=== PATIENT | male | born 1955 ===

== ENCOUNTER 2017-05-12 20:38 | Inpatient (IN) | payer MEDICAID, OTHER ==
[~2017-05-12] VITALS: Ht 195.6 cm; Wt 99.4 kg
[2017-05-12 21:32] LABS: BASOPHILS # (AUTO) 0.01 x10^3/uL (0-0.1); BASOPHILS % (AUTO) 0 % (0-1); EOSINOPHILS # (AUTO) 0.23 x10^3/uL (0-0.4); EOSINOPHILS % (AUTO) 2 % (1-7); LYMPHOCYTES # (AUTO) 1.66 x10^3/uL (1-3.4); LYMPHOCYTES % (AUTO) 16 % (22-44); MD NO; MEAN CORPUSCULAR HEMOGLOBIN 29.8 pg (27.5-34.5); MEAN CORPUSCULAR HGB CONC 34.1 g/dL (33.2-36.2); MEAN CORPUSCULAR VOLUME 87.3 fL (81-97); MONOCYTES # (AUTO) 1.24 x10^3/uL (0.2-0.8); MONOCYTES % (AUTO) 12 % (2-9); NEUTROPHILS # (AUTO) 7.26 x10^3/uL (1.8-6.8); NEUTROPHILS % (AUTO) 70 % (42-75); PLATELET COUNT 271 x10^3/uL (130-400); RED BLOOD COUNT 4.08 x10^6/uL (4.38-5.82); RED CELL DISTRIBUTION WIDTH 14.6 % (9.4-14.8)
[2017-05-12 21:42] LABS: ALBUMIN 3.6 g/dL (3.4-5.0); ANION GAP 9 mmol/L (5-15); CALCIUM 8.4 mg/dL (8.5-10.1); CHLORIDE 109 mmol/L (98-107); CREATININE 1.21 mg/dL (0.7-1.3)
[2017-05-12] MEDS ORDERED: INSU100V13 INJ (22:14)
[2017-05-12] MEDS ORDERED: LISI40TA PO (22:15)
[2017-05-12] MEDS ORDERED: TERA2CAP3 PO (22:15)
[2017-05-12] MEDS ORDERED: CLINDAMYCIN PMX 600MG/50ML 50 ML ONE (22:27)
[2017-05-12] MEDS ORDERED: CLINDAMYCIN PMX 600MG/50ML 50 ML IV ONE (22:30)
[2017-05-12] MEDS ORDERED: SODIUM CHLORIDE 0.9% 1,000 ML IV ONE (22:42)
[2017-05-12] MEDS ORDERED: ONDANSETRON 2MG/ML, 2ML IVPush PRN (23:00)
[2017-05-12] MEDS ORDERED: ONDANSETRON ODT 4 MG PO PRN (23:00)
[2017-05-12] MEDS ORDERED: MORPHINE SULFATE 4 MG/ML, 1ML IVPush PRN (23:00)
[2017-05-12] MEDS ORDERED: ENALAPRILAT 1.25 MG/ML, 2ML IVPush PRN (23:00)
[2017-05-12] MEDS ORDERED: TEMAZEPAM 15 MG CAPSULE PO PRN (23:00)
[2017-05-12] MEDS ORDERED: DOCUSATE 100 MG CAPSULE PO PRN (23:00)
[2017-05-13 00:38] VITALS: BP 110/60
[2017-05-13] MEDS: SODIUM CHLORIDE 0.45% 1,000 ML IV SCH ×3 (00:56→22:00)
[2017-05-13] MEDS: ENOXAPARIN 40 MG/0.4 ML SQ SCH (01:02)
[2017-05-13] MEDS: CLINDAMYCIN PMX 600MG/50ML 50 ML IV SCH ×2 (03:13→16:44)
[2017-05-13 05:16] LABS: BASOPHILS # (AUTO) 0.04 x10^3/uL (0-0.1); BASOPHILS % (AUTO) 1 % (0-1); EOSINOPHILS # (AUTO) 0.25 x10^3/uL (0-0.4); EOSINOPHILS % (AUTO) 3 % (1-7); LYMPHOCYTES # (AUTO) 1.55 x10^3/uL (1-3.4); LYMPHOCYTES % (AUTO) 18 % (22-44); MD NO; MEAN CORPUSCULAR HGB CONC 33.7 g/dL (33.2-36.2); MEAN CORPUSCULAR VOLUME 88.9 fL (81-97); MEAN PLATELET VOLUME 7.9 fL (7.4-10.4); MONOCYTES # (AUTO) 1.19 x10^3/uL (0.2-0.8); MONOCYTES % (AUTO) 14 % (2-9); NEUTROPHILS # (AUTO) 5.51 x10^3/uL (1.8-6.8); NEUTROPHILS % (AUTO) 65 % (42-75); PLATELET COUNT 242 x10^3/uL (130-400); RED BLOOD COUNT 3.64 x10^6/uL (4.38-5.82); RED CELL DISTRIBUTION WIDTH 14.1 % (9.4-14.8)
[2017-05-13 05:29] LABS: CHLORIDE 109 mmol/L (98-107)
[2017-05-13 05:34] LABS: ANION GAP 9 mmol/L (5-15); CALCIUM 8.1 mg/dL (8.5-10.1); CREATININE 1.03 mg/dL (0.7-1.3)
[2017-05-13 07:20] VITALS: BP 109/62
[2017-05-13 08:43] LABS: HEMOGLOBIN A1C 9.1 % (4.2-6.3)
[2017-05-13] MEDS: INSULIN LISPRO 100 UNITS/ML, PEN SQ-INSULIN SCH ×3 (11:00→22:09)
[2017-05-13] MEDS: TERAZOSIN 2MG CAPSULE PO SCH (11:29)
[2017-05-13] MEDS: LISINOPRIL 20 MG TABLET PO SCH (11:31)
[2017-05-13] MEDS: INSULIN GLARGINE 100 UNITS/ML, PEN SQ-INSULIN SCH (12:54)
[2017-05-13 13:45] VITALS: BP 103/56
[2017-05-13] MEDS: ACETAMINOPHEN 325 MG TABLET PO PRN (16:50)
[2017-05-13 18:59] VITALS: BP 115/63
[2017-05-14] MEDS: CLINDAMYCIN PMX 600MG/50ML 50 ML IV SCH ×2 (00:17→13:13)
[2017-05-14] MEDS: ENOXAPARIN 40 MG/0.4 ML SQ SCH ×2 (00:18→23:07)
[2017-05-14 02:42] VITALS: BP 153/70
[2017-05-14 05:54] LABS: CHLORIDE 113 mmol/L (98-107)
[2017-05-14 06:00] LABS: ANION GAP 8 mmol/L (5-15); CALCIUM 8.2 mg/dL (8.5-10.1); CREATININE 0.85 mg/dL (0.7-1.3)
[2017-05-14 06:17] LABS: BASOPHILS # (AUTO) 0.03 x10^3/uL (0-0.1); BASOPHILS % (AUTO) 0 % (0-1); EOSINOPHILS # (AUTO) 0.21 x10^3/uL (0-0.4); EOSINOPHILS % (AUTO) 3 % (1-7); LYMPHOCYTES # (AUTO) 1.42 x10^3/uL (1-3.4); LYMPHOCYTES % (AUTO) 22 % (22-44); MD NO; MEAN CORPUSCULAR HEMOGLOBIN 29.7 pg (27.5-34.5); MEAN CORPUSCULAR HGB CONC 33.6 g/dL (33.2-36.2); MEAN CORPUSCULAR VOLUME 88.6 fL (81-97); MEAN PLATELET VOLUME 8.5 fL (7.4-10.4); MONOCYTES # (AUTO) 0.77 x10^3/uL (0.2-0.8); MONOCYTES % (AUTO) 12 % (2-9); NEUTROPHILS # (AUTO) 4.14 x10^3/uL (1.8-6.8); NEUTROPHILS % (AUTO) 63 % (42-75); PLATELET COUNT 257 x10^3/uL (130-400); RED BLOOD COUNT 3.87 x10^6/uL (4.38-5.82); RED CELL DISTRIBUTION WIDTH 14.4 % (9.4-14.8)
[2017-05-14] MEDS: INSULIN LISPRO 100 UNITS/ML, PEN SQ-INSULIN SCH ×4 (07:00→21:00)
[2017-05-14 07:05] VITALS: BP 152/83
[2017-05-14] MEDS: TERAZOSIN 2MG CAPSULE PO SCH (08:16)
[2017-05-14] MEDS: LISINOPRIL 20 MG TABLET PO SCH (08:16)
[2017-05-14] MEDS: INSULIN GLARGINE 100 UNITS/ML, PEN SQ-INSULIN SCH (08:19)
[2017-05-14] MEDS ORDERED: GADOBUTROL 10 MMOL/10 ML PFS ONE (09:11)
[2017-05-14 13:04] VITALS: BP 131/62
[2017-05-14] MEDS: SODIUM CHLORIDE 0.45% 1,000 ML IV SCH (14:18)
[2017-05-14 19:31] VITALS: BP 171/84
[2017-05-14 19:40] LABS: HCT (SEDRATE) 34.6 % (39.2-51.8)
[2017-05-14 19:54] LABS: ALBUMIN 2.8 g/dL (3.4-5.0); ANION GAP 8 mmol/L (5-15); CALCIUM 8.3 mg/dL (8.5-10.1); CHLORIDE 115 mmol/L (98-107)
[2017-05-14 20:04] LABS: ALANINE AMINOTRANSFERASE 44 U/L (12-78); ALKALINE PHOSPHATASE 66 U/L (45-117); BILIRUBIN,TOTAL 0.3 mg/dL (0.2-1.0); CREATININE 1.04 mg/dL (0.7-1.3); TOTAL PROTEIN 6.7 g/dL (6.4-8.2)
[2017-05-14] MEDS: CEFTAROLINE 600 MG in SODIUM CHLORIDE 0.9% 100 ML IV SCH (21:01)
[2017-05-15] MEDS: SODIUM CHLORIDE 0.45% 1,000 ML IV SCH ×3 (01:33→20:33)
[2017-05-15 01:34] VITALS: BP 161/68
[2017-05-15 05:12] LABS: BASOPHILS # (AUTO) 0.04 x10^3/uL (0-0.1); BASOPHILS % (AUTO) 1 % (0-1); EOSINOPHILS % (AUTO) 3 % (1-7); LYMPHOCYTES # (AUTO) 1.65 x10^3/uL (1-3.4); LYMPHOCYTES % (AUTO) 22 % (22-44); MD NO; MEAN CORPUSCULAR HEMOGLOBIN 29.8 pg (27.5-34.5); MEAN CORPUSCULAR HGB CONC 33.4 g/dL (33.2-36.2); MEAN PLATELET VOLUME 8.3 fL (7.4-10.4); MONOCYTES # (AUTO) 0.68 x10^3/uL (0.2-0.8); MONOCYTES % (AUTO) 9 % (2-9); NEUTROPHILS % (AUTO) 66 % (42-75); PLATELET COUNT 266 x10^3/uL (130-400); RED BLOOD COUNT 3.77 x10^6/uL (4.38-5.82); RED CELL DISTRIBUTION WIDTH 14.2 % (9.4-14.8)
[2017-05-15 05:26] LABS: ANION GAP 8 mmol/L (5-15); CALCIUM 8.3 mg/dL (8.5-10.1); CHLORIDE 113 mmol/L (98-107)
[2017-05-15 05:28] LABS: CREATININE 0.84 mg/dL (0.7-1.3)
[2017-05-15] MEDS: INSULIN LISPRO 100 UNITS/ML, PEN SQ-INSULIN SCH ×4 (07:00→20:40)
[2017-05-15 07:14] VITALS: BP 168/90
[2017-05-15] MEDS: CEFTAROLINE 600 MG in SODIUM CHLORIDE 0.9% 100 ML IV SCH ×2 (07:59→20:32)
[2017-05-15] MEDS: TERAZOSIN 2MG CAPSULE PO SCH ×2 (09:55→20:32)
[2017-05-15] MEDS: LISINOPRIL 20 MG TABLET PO SCH (09:56)
[2017-05-15] MEDS: INSULIN GLARGINE 100 UNITS/ML, PEN SQ-INSULIN SCH (09:56)
[2017-05-15 13:12] VITALS: BP 170/79
[2017-05-15 20:34] VITALS: BP 175/85
[2017-05-15] MEDS: ENOXAPARIN 40 MG/0.4 ML SQ SCH (22:59)
[2017-05-16] MEDS: SODIUM CHLORIDE 0.45% 1,000 ML IV SCH ×2 (03:28→11:35)
[2017-05-16] MEDS: CEFTAROLINE 600 MG in SODIUM CHLORIDE 0.9% 100 ML IV SCH ×2 (03:30→15:49)
[2017-05-16 03:31] VITALS: BP 159/70
[2017-05-16] MEDS: INSULIN LISPRO 100 UNITS/ML, PEN SQ-INSULIN SCH ×4 (07:00→21:48)
[2017-05-16 08:06] VITALS: BP 151/72
[2017-05-16] MEDS: TERAZOSIN 2MG CAPSULE PO SCH ×2 (09:00→21:38)
[2017-05-16] MEDS: LISINOPRIL 20 MG TABLET PO SCH (09:00)
[2017-05-16] MEDS: INSULIN GLARGINE 100 UNITS/ML, PEN SQ-INSULIN SCH (09:00)
[2017-05-16] MEDS ORDERED: BUPIVACAINE/PF 0.5% ONE (11:08)
[2017-05-16] MEDS ORDERED: FENTANYL PF 100 MCG/2ML ONE ×2 (11:46→12:09)
[2017-05-16] MEDS ORDERED: MIDAZOLAM 1 MG/ML, 2ML ONE (11:46)
[2017-05-16] MEDS ORDERED: ROCURONIUM 10 MG/ML,10ML ONE (11:47)
[2017-05-16] MEDS ORDERED: SUCCINYLCHOLINE 20 MG/ML, 10ML ONE (11:47)
[2017-05-16] MEDS ORDERED: PROPOFOL 10 MG/ML, 20ML ONE (11:49)
[2017-05-16] MEDS ORDERED: NEOSPORIN OINT, 15GM ONE (12:24)
[2017-05-16] MEDS ORDERED: OXYcodone 5 MG/5 ML ORAL.SOL UDC ONE (12:56)
[2017-05-16] MEDS ORDERED: FENTANYL PF 100 MCG/2ML IV PRN (13:00)
[2017-05-16] MEDS ORDERED: OXYcodone 5 MG/5 ML ORAL.SOL UDC PO PRN (13:00)
[2017-05-16] MEDS ORDERED: ACETAMINOPHEN 325 MG TABLET PO PRN (13:00)
[2017-05-16] MEDS ORDERED: HYDROmorphone 1 MG/ML, 1ML IV PRN (13:00)
[2017-05-16] MEDS ORDERED: ONDANSETRON 2MG/ML, 2ML IVPush PRN (13:00)
[2017-05-16] MEDS ORDERED: HYDROcodone/APAP 7.5-325MG/15ML UDC PO PRN (13:00)
[2017-05-16 13:39] VITALS: BP 154/83
[2017-05-16] MEDS ORDERED: ONDANSETRON 2MG/ML, 2ML ONE (15:42)
[2017-05-16] MEDS ORDERED: DEXAMETHASONE 4 MG/ML, 1ML ONE (15:42)
[2017-05-16 19:00] VITALS: BP 162/71
[2017-05-16] MEDS: ENOXAPARIN 40 MG/0.4 ML SQ SCH (23:00)
[2017-05-17 03:00] VITALS: BP 145/72
[2017-05-17] MEDS: CEFTAROLINE 600 MG in SODIUM CHLORIDE 0.9% 100 ML IV SCH ×2 (03:14→17:11)
[2017-05-17 05:32] LABS: ANION GAP 7 mmol/L (5-15); CALCIUM 8.3 mg/dL (8.5-10.1); CHLORIDE 111 mmol/L (98-107); CREATININE 0.92 mg/dL (0.7-1.3)
[2017-05-17 05:32] LABS: BASOPHILS # (AUTO) 0.03 x10^3/uL (0-0.1); BASOPHILS % (AUTO) 0 % (0-1); EOSINOPHILS # (AUTO) 0.03 x10^3/uL (0-0.4); EOSINOPHILS % (AUTO) 0 % (1-7); LYMPHOCYTES # (AUTO) 1.42 x10^3/uL (1-3.4); LYMPHOCYTES % (AUTO) 14 % (22-44); MD NO; MEAN CORPUSCULAR HEMOGLOBIN 29.7 pg (27.5-34.5); MEAN CORPUSCULAR HGB CONC 33.6 g/dL (33.2-36.2); MEAN CORPUSCULAR VOLUME 88.5 fL (81-97); MEAN PLATELET VOLUME 8.4 fL (7.4-10.4); MONOCYTES # (AUTO) 0.59 x10^3/uL (0.2-0.8); MONOCYTES % (AUTO) 6 % (2-9); NEUTROPHILS # (AUTO) 8.12 x10^3/uL (1.8-6.8); NEUTROPHILS % (AUTO) 80 % (42-75); PLATELET COUNT 292 x10^3/uL (130-400); RED BLOOD COUNT 3.81 x10^6/uL (4.38-5.82); RED CELL DISTRIBUTION WIDTH 13.8 % (9.4-14.8)
[2017-05-17 07:28] VITALS: BP 184/70
[2017-05-17] MEDS: INSULIN LISPRO 100 UNITS/ML, PEN SQ-INSULIN SCH ×4 (07:42→20:51)
[2017-05-17] MEDS: TERAZOSIN 2MG CAPSULE PO SCH ×2 (07:43→19:20)
[2017-05-17] MEDS: LISINOPRIL 20 MG TABLET PO SCH (07:43)
[2017-05-17] MEDS: INSULIN GLARGINE 100 UNITS/ML, PEN SQ-INSULIN SCH (07:52)
[2017-05-17 09:45] VITALS: BP 149/86
[2017-05-17 13:17] VITALS: BP 167/74
[2017-05-17 18:59] VITALS: BP 163/84
[2017-05-17] MEDS: ENOXAPARIN 40 MG/0.4 ML SQ SCH (22:31)
[2017-05-18 01:35] VITALS: BP 149/86
[2017-05-18] MEDS: CEFTAROLINE 600 MG in SODIUM CHLORIDE 0.9% 100 ML IV SCH ×2 (03:08→16:45)
[2017-05-18 05:18] LABS: ANION GAP 7 mmol/L (5-15); CHLORIDE 111 mmol/L (98-107)
[2017-05-18 05:42] LABS: BASOPHILS # (AUTO) 0.04 x10^3/uL (0-0.1); BASOPHILS % (AUTO) 1 % (0-1); EOSINOPHILS # (AUTO) 0.17 x10^3/uL (0-0.4); EOSINOPHILS % (AUTO) 3 % (1-7); LYMPHOCYTES # (AUTO) 1.92 x10^3/uL (1-3.4); LYMPHOCYTES % (AUTO) 28 % (22-44); MD NO; MEAN CORPUSCULAR HEMOGLOBIN 29.8 pg (27.5-34.5); MEAN CORPUSCULAR HGB CONC 33.5 g/dL (33.2-36.2); MEAN PLATELET VOLUME 8.4 fL (7.4-10.4); MONOCYTES # (AUTO) 0.47 x10^3/uL (0.2-0.8); MONOCYTES % (AUTO) 7 % (2-9); NEUTROPHILS % (AUTO) 62 % (42-75); PLATELET COUNT 294 x10^3/uL (130-400); RED CELL DISTRIBUTION WIDTH 13.9 % (9.4-14.8)
[2017-05-18 06:47] VITALS: BP 159/77
[2017-05-18] MEDS: INSULIN LISPRO 100 UNITS/ML, PEN SQ-INSULIN SCH ×4 (07:00→22:00)
[2017-05-18] MEDS: INSULIN GLARGINE 100 UNITS/ML, PEN SQ-INSULIN SCH (09:14)
[2017-05-18] MEDS: LISINOPRIL 20 MG TABLET PO SCH (09:14)
[2017-05-18] MEDS: TERAZOSIN 2MG CAPSULE PO SCH ×2 (09:14→22:00)
[2017-05-18 12:43] VITALS: BP 183/87
[2017-05-18 13:23] VITALS: BP 167/79
[2017-05-18 19:36] VITALS: BP 168/74
[2017-05-18] MEDS: ENOXAPARIN 40 MG/0.4 ML SQ SCH (22:01)
[2017-05-19] MEDS: CEFTAROLINE 600 MG in SODIUM CHLORIDE 0.9% 100 ML IV SCH (04:25)
[2017-05-19 04:34] VITALS: BP 164/83
[2017-05-19] MEDS: INSULIN LISPRO 100 UNITS/ML, PEN SQ-INSULIN SCH ×4 (07:00→20:52)
[2017-05-19 07:20] VITALS: BP 167/76
[2017-05-19] MEDS: LISINOPRIL 20 MG TABLET PO SCH (08:18)
[2017-05-19] MEDS: TERAZOSIN 2MG CAPSULE PO SCH ×2 (08:18→20:14)
[2017-05-19] MEDS: INSULIN GLARGINE 100 UNITS/ML, PEN SQ-INSULIN SCH (08:19)
[2017-05-19 13:26] VITALS: BP 161/73
[2017-05-19] MEDS: PIPERACILLIN/TAZO/PMX 3.375GM 50 ML IV SCH ×2 (14:12→20:14)
[2017-05-19 19:14] VITALS: BP 176/76
[2017-05-19 20:15] VITALS: BP 176/79
[2017-05-19] MEDS: hydrALAzine 20 MG/ML, 1ML IV PRN (20:15)
[2017-05-19 21:30] VITALS: BP 166/72
[2017-05-19] MEDS: ENOXAPARIN 40 MG/0.4 ML SQ SCH (23:00)
[2017-05-20 01:13] VITALS: BP 158/74
[2017-05-20] MEDS: PIPERACILLIN/TAZO/PMX 3.375GM 50 ML IV SCH ×4 (02:12→21:11)
[2017-05-20 06:46] VITALS: BP 162/75
[2017-05-20] MEDS: INSULIN LISPRO 100 UNITS/ML, PEN SQ-INSULIN SCH ×4 (07:00→21:00)
[2017-05-20] MEDS: LISINOPRIL 20 MG TABLET PO SCH (09:35)
[2017-05-20] MEDS: TERAZOSIN 2MG CAPSULE PO SCH ×2 (09:35→21:11)
[2017-05-20] MEDS: INSULIN GLARGINE 100 UNITS/ML, PEN SQ-INSULIN SCH (09:40)
[2017-05-20] MEDS: ACETAMINOPHEN 325 MG TABLET PO PRN (09:48)
[2017-05-20 13:06] VITALS: BP 156/76
[2017-05-20 19:47] VITALS: BP 159/67
[2017-05-20] MEDS: ENOXAPARIN 40 MG/0.4 ML SQ SCH (23:50)
[2017-05-21 02:55] VITALS: BP 177/86
[2017-05-21] MEDS: PIPERACILLIN/TAZO/PMX 3.375GM 50 ML IV SCH ×4 (02:59→19:42)
[2017-05-21] MEDS: hydrALAzine 20 MG/ML, 1ML IV PRN (03:00)
[2017-05-21 04:10] VITALS: BP 165/81
[2017-05-21 04:56] LABS: BASOPHILS # (AUTO) 0.03 x10^3/uL (0-0.1); BASOPHILS % (AUTO) 0 % (0-1); EOSINOPHILS # (AUTO) 0.21 x10^3/uL (0-0.4); EOSINOPHILS % (AUTO) 3 % (1-7); LYMPHOCYTES # (AUTO) 2.13 x10^3/uL (1-3.4); LYMPHOCYTES % (AUTO) 29 % (22-44); MD NO; MEAN CORPUSCULAR HEMOGLOBIN 30.1 pg (27.5-34.5); MEAN CORPUSCULAR HGB CONC 34.1 g/dL (33.2-36.2); MEAN CORPUSCULAR VOLUME 88.3 fL (81-97); MEAN PLATELET VOLUME 7.8 fL (7.4-10.4); MONOCYTES # (AUTO) 0.53 x10^3/uL (0.2-0.8); MONOCYTES % (AUTO) 7 % (2-9); NEUTROPHILS # (AUTO) 4.47 x10^3/uL (1.8-6.8); NEUTROPHILS % (AUTO) 61 % (42-75); PLATELET COUNT 377 x10^3/uL (130-400); RED BLOOD COUNT 4.45 x10^6/uL (4.38-5.82); RED CELL DISTRIBUTION WIDTH 14.5 % (9.4-14.8)
[2017-05-21 04:59] LABS: ALBUMIN 3.1 g/dL (3.4-5.0); ANION GAP 7 mmol/L (5-15); CALCIUM 8.7 mg/dL (8.5-10.1); CHLORIDE 111 mmol/L (98-107)
[2017-05-21 05:02] LABS: ALANINE AMINOTRANSFERASE 39 U/L (12-78); ALKALINE PHOSPHATASE 74 U/L (45-117); BILIRUBIN,TOTAL 0.5 mg/dL (0.2-1.0); C-REACTIVE PROTEIN, QUANT 0.62 mg/dL (0.02-0.49); CREATININE 0.95 mg/dL (0.7-1.3)
[2017-05-21 05:21] LABS: HCT (SEDRATE) 33.8 % (39.2-51.8)
[2017-05-21 06:50] VITALS: BP 163/75
[2017-05-21] MEDS: INSULIN LISPRO 100 UNITS/ML, PEN SQ-INSULIN SCH ×4 (07:00→19:42)
[2017-05-21] MEDS: INSULIN GLARGINE 100 UNITS/ML, PEN SQ-INSULIN SCH (08:02)
[2017-05-21] MEDS: TERAZOSIN 2MG CAPSULE PO SCH ×2 (08:02→19:41)
[2017-05-21] MEDS: LISINOPRIL 20 MG TABLET PO SCH (08:02)
[2017-05-21] MEDS: ACETAMINOPHEN 325 MG TABLET PO PRN ×2 (08:02→19:41)
[2017-05-21 14:00] VITALS: BP 156/73
[2017-05-21 19:32] VITALS: BP 172/70
[2017-05-22 04:33] VITALS: BP 141/63
[2017-05-22] MEDS: PIPERACILLIN/TAZO/PMX 3.375GM 50 ML IV SCH ×4 (04:33→21:04)
[2017-05-22] MEDS: INSULIN LISPRO 100 UNITS/ML, PEN SQ-INSULIN SCH ×4 (07:00→21:18)
[2017-05-22 07:55] VITALS: BP 165/71
[2017-05-22] MEDS: LISINOPRIL 20 MG TABLET PO SCH (09:08)
[2017-05-22] MEDS: TERAZOSIN 2MG CAPSULE PO SCH ×2 (09:08→21:04)
[2017-05-22] MEDS: INSULIN GLARGINE 100 UNITS/ML, PEN SQ-INSULIN SCH (09:09)
[2017-05-22] MEDS: ENOXAPARIN 40 MG/0.4 ML SQ SCH (09:09)
[2017-05-22 13:08] VITALS: BP 157/73
[2017-05-22 19:52] VITALS: BP 164/75
[2017-05-23] MEDS: PIPERACILLIN/TAZO/PMX 3.375GM 50 ML IV SCH ×4 (03:57→20:17)
[2017-05-23] MEDS: INSULIN LISPRO 100 UNITS/ML, PEN SQ-INSULIN SCH ×4 (07:00→20:25)
[2017-05-23 07:27] VITALS: BP 162/72
[2017-05-23] MEDS: ENOXAPARIN 40 MG/0.4 ML SQ SCH (08:43)
[2017-05-23] MEDS: LISINOPRIL 20 MG TABLET PO SCH (08:43)
[2017-05-23] MEDS: TERAZOSIN 2MG CAPSULE PO SCH ×2 (08:43→20:16)
[2017-05-23] MEDS: INSULIN GLARGINE 100 UNITS/ML, PEN SQ-INSULIN SCH (08:45)
[2017-05-23 13:16] VITALS: BP 155/82
[2017-05-23 18:28] VITALS: BP 162/80
[2017-05-24 01:00] VITALS: BP 160/64
[2017-05-24] MEDS: PIPERACILLIN/TAZO/PMX 3.375GM 50 ML IV SCH ×4 (03:10→21:00)
[2017-05-24] MEDS: INSULIN LISPRO 100 UNITS/ML, PEN SQ-INSULIN SCH ×4 (07:00→20:55)
[2017-05-24 08:06] VITALS: BP 155/80
[2017-05-24] MEDS: LISINOPRIL 20 MG TABLET PO SCH (09:28)
[2017-05-24] MEDS: ENOXAPARIN 40 MG/0.4 ML SQ SCH (09:29)
[2017-05-24] MEDS: TERAZOSIN 2MG CAPSULE PO SCH ×2 (09:29→21:00)
[2017-05-24] MEDS: INSULIN GLARGINE 100 UNITS/ML, PEN SQ-INSULIN SCH (09:31)
[2017-05-24 13:26] VITALS: BP 182/88
[2017-05-24 19:47] VITALS: BP 177/77
[2017-05-25] MEDS: PIPERACILLIN/TAZO/PMX 3.375GM 50 ML IV SCH ×5 (03:14→23:59)
[2017-05-25 03:46] VITALS: BP 161/66
[2017-05-25 05:14] LABS: BASOPHILS # (AUTO) 0.03 x10^3/uL (0-0.1); BASOPHILS % (AUTO) 1 % (0-1); EOSINOPHILS # (AUTO) 0.17 x10^3/uL (0-0.4); EOSINOPHILS % (AUTO) 3 % (1-7); LYMPHOCYTES # (AUTO) 1.71 x10^3/uL (1-3.4); LYMPHOCYTES % (AUTO) 26 % (22-44); MD NO; MEAN CORPUSCULAR HEMOGLOBIN 29.8 pg (27.5-34.5); MEAN CORPUSCULAR HGB CONC 33.9 g/dL (33.2-36.2); MEAN PLATELET VOLUME 7.7 fL (7.4-10.4); MONOCYTES # (AUTO) 0.55 x10^3/uL (0.2-0.8); MONOCYTES % (AUTO) 8 % (2-9); NEUTROPHILS # (AUTO) 4.16 x10^3/uL (1.8-6.8); NEUTROPHILS % (AUTO) 63 % (42-75); PLATELET COUNT 302 x10^3/uL (130-400); RED BLOOD COUNT 4.29 x10^6/uL (4.38-5.82); RED CELL DISTRIBUTION WIDTH 14.2 % (9.4-14.8)
[2017-05-25 05:15] LABS: ANION GAP 7 mmol/L (5-15); CALCIUM 8.8 mg/dL (8.5-10.1); CHLORIDE 110 mmol/L (98-107)
[2017-05-25 05:18] LABS: CREATININE 0.84 mg/dL (0.7-1.3)
[2017-05-25] MEDS: INSULIN LISPRO 100 UNITS/ML, PEN SQ-INSULIN SCH ×4 (07:00→21:01)
[2017-05-25 08:14] VITALS: BP 179/89
[2017-05-25] MEDS: TERAZOSIN 2MG CAPSULE PO SCH ×2 (08:24→20:50)
[2017-05-25] MEDS: ENOXAPARIN 40 MG/0.4 ML SQ SCH (08:24)
[2017-05-25] MEDS: LISINOPRIL 20 MG TABLET PO SCH (08:24)
[2017-05-25] MEDS: INSULIN GLARGINE 100 UNITS/ML, PEN SQ-INSULIN SCH (08:25)
[2017-05-25 14:30] VITALS: BP 158/64
[2017-05-25 19:52] VITALS: BP 170/82
[2017-05-25 22:08] VITALS: BP 172/82
[2017-05-25] MEDS: hydrALAzine 20 MG/ML, 1ML IV PRN (22:08)
[2017-05-26 00:13] VITALS: BP 174/73
[2017-05-26] MEDS: PIPERACILLIN/TAZO/PMX 3.375GM 50 ML IV SCH ×3 (05:53→20:04)
[2017-05-26] MEDS: INSULIN LISPRO 100 UNITS/ML, PEN SQ-INSULIN SCH ×4 (07:00→20:57)
[2017-05-26 08:30] VITALS: BP 152/73
[2017-05-26] MEDS: ENOXAPARIN 40 MG/0.4 ML SQ SCH (09:00)
[2017-05-26] MEDS: TERAZOSIN 2MG CAPSULE PO SCH ×2 (09:00→21:00)
[2017-05-26] MEDS: INSULIN GLARGINE 100 UNITS/ML, PEN SQ-INSULIN SCH (09:00)
[2017-05-26] MEDS: LISINOPRIL 20 MG TABLET PO SCH (10:20)
[2017-05-26] MEDS: AMLODIPINE 5 MG TABLET PO SCH (10:21)
[2017-05-26 14:34] VITALS: BP 176/75
[2017-05-26 16:48] LABS: AMPHETAMINE SCREEN, URINE Negative (Negative); BARBITURATE SCREEN, URINE Negative (Negative); BENZODIAZEPINE SCREEN, URINE Negative (Negative); CANNABINOID SCREEN, URINE Negative (Negative); COCAINE SCREEN, URINE Negative (Negative); METHADONE SCREEN, URINE Negative (Negative); OPIATE SCREEN, URINE Negative (Negative)
[2017-05-26 19:08] VITALS: BP 180/82
[2017-05-26 21:00] VITALS: BP 170/73
[2017-05-26] MEDS: hydrALAzine 20 MG/ML, 1ML IV PRN (21:22)
[2017-05-26 22:35] VITALS: BP 158/81
[2017-05-27 03:00] VITALS: BP 150/71
[2017-05-27] MEDS: PIPERACILLIN/TAZO/PMX 3.375GM 50 ML IV SCH ×4 (03:05→20:14)
[2017-05-27 07:19] VITALS: BP 143/68
[2017-05-27] MEDS: INSULIN LISPRO 100 UNITS/ML, PEN SQ-INSULIN SCH ×4 (08:08→21:00)
[2017-05-27] MEDS: LISINOPRIL 20 MG TABLET PO SCH (08:19)
[2017-05-27] MEDS: AMLODIPINE 5 MG TABLET PO SCH (08:19)
[2017-05-27] MEDS: ACETAMINOPHEN 325 MG TABLET PO PRN (08:19)
[2017-05-27] MEDS: INSULIN GLARGINE 100 UNITS/ML, PEN SQ-INSULIN SCH (08:20)
[2017-05-27] MEDS: ENOXAPARIN 40 MG/0.4 ML SQ SCH (08:20)
[2017-05-27] MEDS: TERAZOSIN 2MG CAPSULE PO SCH ×2 (08:21→21:00)
[2017-05-27 14:39] VITALS: BP 154/70
[2017-05-27 19:32] VITALS: BP 158/79
[2017-05-28] MEDS: PIPERACILLIN/TAZO/PMX 3.375GM 50 ML IV SCH ×4 (02:10→21:04)
[2017-05-28 02:21] VITALS: BP 152/76
[2017-05-28 02:28] LABS: BASOPHILS # (AUTO) 0.06 x10^3/uL (0-0.1); BASOPHILS % (AUTO) 1 % (0-1); EOSINOPHILS # (AUTO) 0.18 x10^3/uL (0-0.4); EOSINOPHILS % (AUTO) 2 % (1-7); LYMPHOCYTES # (AUTO) 2.01 x10^3/uL (1-3.4); LYMPHOCYTES % (AUTO) 25 % (22-44); MD NO; MEAN CORPUSCULAR HEMOGLOBIN 29.5 pg (27.5-34.5); MEAN CORPUSCULAR HGB CONC 33.5 g/dL (33.2-36.2); MEAN PLATELET VOLUME 8.1 fL (7.4-10.4); MONOCYTES # (AUTO) 0.61 x10^3/uL (0.2-0.8); MONOCYTES % (AUTO) 8 % (2-9); NEUTROPHILS # (AUTO) 5.13 x10^3/uL (1.8-6.8); NEUTROPHILS % (AUTO) 64 % (42-75); PLATELET COUNT 300 x10^3/uL (130-400); RED BLOOD COUNT 4.38 x10^6/uL (4.38-5.82)
[2017-05-28 02:33] LABS: ALANINE AMINOTRANSFERASE 33 U/L (12-78); ALBUMIN 3.2 g/dL (3.4-5.0); ANION GAP 8 mmol/L (5-15); C-REACTIVE PROTEIN, QUANT 0.45 mg/dL (0.02-0.49); CALCIUM 8.6 mg/dL (8.5-10.1); CHLORIDE 109 mmol/L (98-107); CREATININE 0.89 mg/dL (0.7-1.3)
[2017-05-28 02:35] LABS: ALKALINE PHOSPHATASE 72 U/L (45-117); BILIRUBIN,TOTAL 0.3 mg/dL (0.2-1.0); TOTAL PROTEIN 7.1 g/dL (6.4-8.2)
[2017-05-28 02:59] LABS: HCT (SEDRATE) 37.7 % (39.2-51.8)
[2017-05-28 06:57] VITALS: BP 148/70
[2017-05-28] MEDS: INSULIN LISPRO 100 UNITS/ML, PEN SQ-INSULIN SCH ×4 (07:36→21:00)
[2017-05-28] MEDS: ENOXAPARIN 40 MG/0.4 ML SQ SCH (08:21)
[2017-05-28] MEDS: AMLODIPINE 5 MG TABLET PO SCH (08:21)
[2017-05-28] MEDS: LISINOPRIL 20 MG TABLET PO SCH (08:22)
[2017-05-28] MEDS: INSULIN GLARGINE 100 UNITS/ML, PEN SQ-INSULIN SCH (08:23)
[2017-05-28] MEDS: TERAZOSIN 2MG CAPSULE PO SCH ×2 (09:00→21:08)
[2017-05-28 13:08] VITALS: BP 161/79
[2017-05-28 20:00] VITALS: BP 143/74
[2017-05-29] MEDS: PIPERACILLIN/TAZO/PMX 3.375GM 50 ML IV SCH ×4 (02:23→20:12)
[2017-05-29 03:09] VITALS: BP 143/71
[2017-05-29] MEDS: INSULIN LISPRO 100 UNITS/ML, PEN SQ-INSULIN SCH ×4 (07:00→20:24)
[2017-05-29 07:35] VITALS: BP 168/81
[2017-05-29] MEDS: LISINOPRIL 20 MG TABLET PO SCH (09:00)
[2017-05-29] MEDS: TERAZOSIN 2MG CAPSULE PO SCH ×2 (09:00→20:12)
[2017-05-29] MEDS: AMLODIPINE 5 MG TABLET PO SCH (09:00)
[2017-05-29] MEDS: ENOXAPARIN 40 MG/0.4 ML SQ SCH (09:00)
[2017-05-29] MEDS ORDERED: SODIUM CHLORIDE 0.9% 1,000 ML IV SCH (11:00)
[2017-05-29] MEDS: INSULIN GLARGINE 100 UNITS/ML, PEN SQ-INSULIN SCH (12:01)
[2017-05-29 13:31] VITALS: BP 157/77
[2017-05-29] MEDS ORDERED: BUPIVACAINE/PF 0.5% ONE (16:39)
[2017-05-29] MEDS ORDERED: MIDAZOLAM 1 MG/ML, 2ML ONE (16:58)
[2017-05-29] MEDS ORDERED: FENTANYL PF 250 MCG/5ML ONE (16:58)
[2017-05-29] MEDS ORDERED: SUCCINYLCHOLINE 20 MG/ML, 10ML ONE (17:00)
[2017-05-29] MEDS ORDERED: ONDANSETRON 2MG/ML, 2ML ONE (17:00)
[2017-05-29] MEDS ORDERED: PROPOFOL 10 MG/ML, 20ML ONE (17:00)
[2017-05-29] MEDS ORDERED: NEOSPORIN OINT, 15GM ONE (17:15)
[2017-05-29] MEDS ORDERED: LABETALOL 5MG/ML, 20ML IV PRN (18:00)
[2017-05-29] MEDS ORDERED: OXYcodone 5 MG/5 ML ORAL.SOL UDC PO PRN (18:00)
[2017-05-29] MEDS ORDERED: HYDROmorphone 1 MG/ML, 1ML IV PRN (18:00)
[2017-05-29] MEDS ORDERED: ONDANSETRON 2MG/ML, 2ML IVPush PRN (18:00)
[2017-05-29] MEDS ORDERED: FENTANYL PF 100 MCG/2ML IV PRN (18:00)
[2017-05-29] MEDS ORDERED: METOCLOPRAMIDE 5 MG/ML, 2ML IV PRN (18:00)
[2017-05-29] MEDS ORDERED: hydrALAzine 20 MG/ML, 1ML IV PRN (18:00)
[2017-05-29] MEDS ORDERED: ACETAMINOPHEN 325 MG TABLET PO PRN (18:00)
[2017-05-29 19:02] VITALS: BP 156/76
[2017-05-29] MEDS: ACETAMINOPHEN 325 MG TABLET PO PRN (21:57)
[2017-05-30 01:33] VITALS: BP 163/77
[2017-05-30] MEDS: PIPERACILLIN/TAZO/PMX 3.375GM 50 ML IV SCH ×4 (02:03→20:55)
[2017-05-30 05:25] LABS: BASOPHILS # (AUTO) 0.04 x10^3/uL (0-0.1); BASOPHILS % (AUTO) 1 % (0-1); EOSINOPHILS # (AUTO) 0.16 x10^3/uL (0-0.4); EOSINOPHILS % (AUTO) 2 % (1-7); LYMPHOCYTES % (AUTO) 24 % (22-44); MD NO; MEAN CORPUSCULAR HEMOGLOBIN 29.2 pg (27.5-34.5); MEAN CORPUSCULAR HGB CONC 33.3 g/dL (33.2-36.2); MEAN CORPUSCULAR VOLUME 87.8 fL (81-97); MONOCYTES # (AUTO) 0.58 x10^3/uL (0.2-0.8); MONOCYTES % (AUTO) 8 % (2-9); NEUTROPHILS # (AUTO) 4.49 x10^3/uL (1.8-6.8); NEUTROPHILS % (AUTO) 64 % (42-75); PLATELET COUNT 283 x10^3/uL (130-400); RED BLOOD COUNT 4.28 x10^6/uL (4.38-5.82); RED CELL DISTRIBUTION WIDTH 14.1 % (9.4-14.8)
[2017-05-30 05:37] LABS: ANION GAP 7 mmol/L (5-15); CALCIUM 8.4 mg/dL (8.5-10.1); CHLORIDE 112 mmol/L (98-107); CREATININE 0.89 mg/dL (0.7-1.3)
[2017-05-30] MEDS: INSULIN LISPRO 100 UNITS/ML, PEN SQ-INSULIN SCH ×4 (07:00→20:59)
[2017-05-30 07:10] VITALS: BP 162/79
[2017-05-30] MEDS: TERAZOSIN 2MG CAPSULE PO SCH ×2 (09:00→20:54)
[2017-05-30] MEDS: ENOXAPARIN 40 MG/0.4 ML SQ SCH (09:09)
[2017-05-30] MEDS: AMLODIPINE 5 MG TABLET PO SCH (09:10)
[2017-05-30] MEDS: LISINOPRIL 20 MG TABLET PO SCH (09:10)
[2017-05-30] MEDS: INSULIN GLARGINE 100 UNITS/ML, PEN SQ-INSULIN SCH (09:12)
[2017-05-30] MEDS: ACETAMINOPHEN 325 MG TABLET PO PRN (09:17)
[2017-05-30 12:57] VITALS: BP 148/75
[2017-05-30 19:40] VITALS: BP 163/76
[2017-05-31 02:59] VITALS: BP 150/80
[2017-05-31] MEDS: PIPERACILLIN/TAZO/PMX 3.375GM 50 ML IV SCH ×4 (03:01→20:58)
[2017-05-31] MEDS: INSULIN LISPRO 100 UNITS/ML, PEN SQ-INSULIN SCH ×4 (07:00→21:00)
[2017-05-31 07:12] VITALS: BP 184/84
[2017-05-31] MEDS: ENOXAPARIN 40 MG/0.4 ML SQ SCH (08:42)
[2017-05-31] MEDS: TERAZOSIN 2MG CAPSULE PO SCH ×2 (08:43→20:58)
[2017-05-31] MEDS: LISINOPRIL 20 MG TABLET PO SCH (08:43)
[2017-05-31] MEDS: AMLODIPINE 5 MG TABLET PO SCH (08:43)
[2017-05-31] MEDS: INSULIN GLARGINE 100 UNITS/ML, PEN SQ-INSULIN SCH (08:44)
[2017-05-31 12:50] VITALS: BP 153/79
[2017-05-31 13:13] VITALS: BP 106/68
[2017-05-31 18:59] VITALS: BP 163/78
[2017-06-01 02:55] VITALS: BP 146/74
[2017-06-01] MEDS: PIPERACILLIN/TAZO/PMX 3.375GM 50 ML IV SCH ×2 (02:55→08:52)
[2017-06-01] MEDS: INSULIN LISPRO 100 UNITS/ML, PEN SQ-INSULIN SCH ×2 (07:00→11:00)
[2017-06-01 07:10] VITALS: BP 149/83
[2017-06-01] MEDS: LISINOPRIL 20 MG TABLET PO SCH (08:52)
[2017-06-01] MEDS: TERAZOSIN 2MG CAPSULE PO SCH (08:54)
[2017-06-01] MEDS: ENOXAPARIN 40 MG/0.4 ML SQ SCH (08:57)
[2017-06-01] MEDS: AMLODIPINE 5 MG TABLET PO SCH (08:57)
[2017-06-01] MEDS ORDERED: AMOX1TAB61 PO (09:19)
[2017-06-01] MEDS ORDERED: AMLO5TAB2 PO (09:19)
[2017-06-01] MEDS: INSULIN GLARGINE 100 UNITS/ML, PEN SQ-INSULIN SCH (10:18)
== END 2017-06-01 12:23 | DRG 617 ==
LOC: ED 21:57 → EDIP 22:46 → 3NE 23:56
PROVIDERS: ADMIT Family Medicine; ATTEND Family Medicine
PROC: 0Y6R0Z0 Detachment at Right 2nd Toe, Complete, Open Approach (ICD-10-PCS; principal; 2017-05-16 12:00)
PROC: 0JBQ0ZZ Excision of Right Foot Subcutaneous Tissue and Fascia, Open Approach (ICD-10-PCS; 2017-05-29)
DX: E11.69 Type 2 diabetes mellitus with other specified complication (principal); B15.9 Hepatitis A without hepatic coma; I11.9 Hypertensive heart disease without heart failure; E11.65 Type 2 diabetes mellitus with hyperglycemia; D64.9 Anemia, unspecified; S91.114A Laceration without foreign body of right lesser toe(s) without damage to nail, initial encounter; F12.90 Cannabis use, unspecified, uncomplicated; T81.30XA Disruption of wound, unspecified, initial encounter; E11.628 Type 2 diabetes mellitus with other skin complications; B95.61 Methicillin susceptible Staphylococcus aureus infection as the cause of diseases classified elsewhere; F15.90 Other stimulant use, unspecified, uncomplicated; L03.031 Cellulitis of right toe; W25.XXXA Contact with sharp glass, initial encounter; Z79.4 Long term (current) use of insulin; Z79.899 Other long term (current) drug therapy; Z82.49 Family history of ischemic heart disease and other diseases of the circulatory system; Z83.1 Family history of other infectious and parasitic diseases; Z83.3 Family history of diabetes mellitus; Y83.8 Other surgical procedures as the cause of abnormal reaction of the patient, or of later complication, without mention of misadventure at the time of the procedure
CPT/HCPCS: 36415; 36569; 76937; 77001; 80048; 80053; 80307; 82040; 82962; 83036; 85025; 85651; 86140; 86622; 86708; 86803; 87040; 87070; 87075; 87077; 87147; 87186; 87205; 87806; 88305; 88311; 93005; 93306; 96365; A9585; J0712; J1100; J1650; J2250; J2405; J2543; J2704; J3010; J3490; C1751; G0475; J0330; J0360; J1815; J7030

== ENCOUNTER 2017-10-30 13:39 | Inpatient (IN) | payer MEDICAID ==
[~2017-10-30] VITALS: Ht 195.6 cm; Wt 102.9 kg
[~2017-10-30 13:39] MED LIST: AMLO5TAB2 PO; AMOX1TAB61 PO; INSU100V13 INJ; LISI40TA PO; TERA2CAP3 PO
[2017-10-30 14:23] LABS: BASOPHILS # (AUTO) 0.03 x10^3/uL (0-0.1); BASOPHILS % (AUTO) 0 % (0-1); EOSINOPHILS # (AUTO) 0.18 x10^3/uL (0-0.4); EOSINOPHILS % (AUTO) 3 % (1-7); LYMPHOCYTES # (AUTO) 1.22 x10^3/uL (1-3.4); LYMPHOCYTES % (AUTO) 20 % (22-44); MD NO; MEAN CORPUSCULAR HEMOGLOBIN 29.9 pg (27.5-34.5); MEAN CORPUSCULAR HGB CONC 33.8 g/dL (33.2-36.2); MEAN CORPUSCULAR VOLUME 88.4 fL (81-97); MEAN PLATELET VOLUME 7.4 fL (7.4-10.4); MONOCYTES # (AUTO) 0.31 x10^3/uL (0.2-0.8); MONOCYTES % (AUTO) 5 % (2-9); NEUTROPHILS # (AUTO) 4.46 x10^3/uL (1.8-6.8); NEUTROPHILS % (AUTO) 72 % (42-75); PLATELET COUNT 428 x10^3/uL (130-400); RED BLOOD COUNT 4.08 x10^6/uL (4.38-5.82); RED CELL DISTRIBUTION WIDTH 13.9 % (9.4-14.8)
[2017-10-30 14:34] LABS: ALBUMIN 2.8 g/dL (3.4-5.0); ANION GAP 8 mmol/L (5-15); CALCIUM 8.2 mg/dL (8.5-10.1); CHLORIDE 112 mmol/L (98-107); CREATININE 1.12 mg/dL (0.7-1.3)
[2017-10-30 15:06] LABS: HCT (SEDRATE) 36.1 % (39.2-51.8)
[2017-10-30] MEDS ORDERED: CEFAZOLIN PMX 1GM/50ML 50 ML IV ONE (15:30)
[2017-10-30] MEDS ORDERED: CEFAZOLIN PMX 1GM/50ML 50 ML ONE (15:47)
[2017-10-30] MEDS ORDERED: hydrALAzine 20 MG/ML, 1ML IVPush PRN (17:00)
[2017-10-30] MEDS ORDERED: ONDANSETRON 2MG/ML, 2ML IVPush PRN (17:00)
[2017-10-30] MEDS ORDERED: GUAIFENESIN/COD200MG-20MG/10ML LIQUID PO PRN (17:00)
[2017-10-30] MEDS ORDERED: DOCUSATE 100 MG CAPSULE PO PRN (17:00)
[2017-10-30] MEDS ORDERED: ENOXAPARIN 40 MG/0.4 ML ONE (17:32)
[2017-10-30] MEDS: ENOXAPARIN 40 MG/0.4 ML SQ SCH (17:36)
[2017-10-30 17:56] VITALS: BP 168/89
[2017-10-30] MEDS: PIPERACILLIN/TAZO/PMX 4.5GM 100 ML IV SCH ×2 (18:44→23:52)
[2017-10-30 19:43] VITALS: BP 148/65
[2017-10-31 04:09] VITALS: BP 157/76
[2017-10-31] MEDS: PIPERACILLIN/TAZO/PMX 4.5GM 100 ML IV SCH ×2 (06:11→11:31)
[2017-10-31 07:13] LABS: BASOPHILS # (AUTO) 0.05 x10^3/uL (0-0.1); BASOPHILS % (AUTO) 1 % (0-1); EOSINOPHILS # (AUTO) 0.28 x10^3/uL (0-0.4); EOSINOPHILS % (AUTO) 5 % (1-7); LYMPHOCYTES # (AUTO) 1.13 x10^3/uL (1-3.4); LYMPHOCYTES % (AUTO) 20 % (22-44); MD NO; MEAN CORPUSCULAR HEMOGLOBIN 29.3 pg (27.5-34.5); MEAN CORPUSCULAR HGB CONC 33.2 g/dL (33.2-36.2); MEAN CORPUSCULAR VOLUME 88.2 fL (81-97); MEAN PLATELET VOLUME 7.1 fL (7.4-10.4); MONOCYTES # (AUTO) 0.45 x10^3/uL (0.2-0.8); MONOCYTES % (AUTO) 8 % (2-9); NEUTROPHILS # (AUTO) 3.66 x10^3/uL (1.8-6.8); NEUTROPHILS % (AUTO) 66 % (42-75); PLATELET COUNT 429 x10^3/uL (130-400); RED BLOOD COUNT 3.94 x10^6/uL (4.38-5.82)
[2017-10-31 07:23] LABS: ANION GAP 5 mmol/L (5-15); CALCIUM 8.3 mg/dL (8.5-10.1); CHLORIDE 113 mmol/L (98-107); CREATININE 1.04 mg/dL (0.7-1.3)
[2017-10-31 07:45] VITALS: BP 142/77
[2017-10-31 07:59] LABS: HEMOGLOBIN A1C 7.1 % (4.2-6.3)
[2017-10-31] MEDS: TERAZOSIN 2MG CAPSULE PO SCH (08:32)
[2017-10-31] MEDS: LISINOPRIL 20 MG TABLET PO SCH (08:33)
[2017-10-31] MEDS: AMLODIPINE 5 MG TABLET PO SCH (08:33)
[2017-10-31] MEDS: INSULIN GLARGINE 100 UNITS/ML, PEN SQ-INSULIN SCH (10:57)
[2017-10-31 13:00] VITALS: BP_SYST 106; BP_SYST 142; BP_DIAS 64; BP_DIAS 72
[2017-10-31] MEDS: INSULIN LISPRO 100 UNITS/ML, PEN SQ-INSULIN SCH ×2 (16:00→20:30)
[2017-10-31] MEDS: ENOXAPARIN 40 MG/0.4 ML SQ SCH (17:00)
[2017-10-31] MEDS ORDERED: PNEUMOC 13-VALENT VACC, 0.5 ML IM-VACC ONE (18:00)
[2017-10-31 20:11] VITALS: BP 154/75
[2017-11-01 01:01] VITALS: BP 159/79
[2017-11-01] MEDS ORDERED: MIDAZOLAM 1 MG/ML, 2ML ONE (06:27)
[2017-11-01] MEDS ORDERED: FENTANYL PF 250 MCG/5ML ONE (06:28)
[2017-11-01] MEDS ORDERED: ROCURONIUM 10MG/ML,5ML ONE (06:29)
[2017-11-01] MEDS ORDERED: PHENYLEPHRINE 10 MG/ML ONE (06:31)
[2017-11-01] MEDS ORDERED: ONDANSETRON 2MG/ML, 2ML ONE (06:32)
[2017-11-01] MEDS ORDERED: DEXAMETHASONE 4 MG/ML, 1ML ONE (06:32)
[2017-11-01] MEDS ORDERED: ACETAMINOPHEN 500 MG TABLET ONE (06:47)
[2017-11-01] MEDS ORDERED: GABAPENTIN 300 MG CAPSULE ONE (06:48)
[2017-11-01] MEDS ORDERED: PROPOFOL 10 MG/ML, 20ML ONE (06:58)
[2017-11-01] MEDS ORDERED: GABAPENTIN 300 MG CAPSULE PO ONE (07:00)
[2017-11-01] MEDS ORDERED: ACETAMINOPHEN 500 MG TABLET PO ONE (07:00)
[2017-11-01] MEDS ORDERED: BUPIVACAINE/PF 0.5% ONE (07:17)
[2017-11-01] MEDS ORDERED: EPINEPHRINE 1 MG/ML, 1ML ONE (07:17)
[2017-11-01] MEDS ORDERED: FENTANYL PF 100 MCG/2ML ONE ×2 (08:11→08:37)
[2017-11-01] MEDS ORDERED: OXYcodone 5 MG/5 ML ORAL.SOL UDC ONE (08:11)
[2017-11-01] MEDS: FENTANYL PF 100 MCG/2ML IV PRN ×4 (08:15→08:39)
[2017-11-01] MEDS ORDERED: LABETALOL 5MG/ML, 20ML IV PRN (08:30)
[2017-11-01] MEDS ORDERED: OXYcodone 5 MG/5 ML ORAL.SOL UDC PO PRN (08:30)
[2017-11-01] MEDS ORDERED: HALOPERIDOL 5 MG/ML IV PRN (08:30)
[2017-11-01] MEDS ORDERED: MEPERIDINE/PF 25MG/0.5ML IVPush PRN (08:30)
[2017-11-01] MEDS ORDERED: HYDROmorphone 1 MG/ML, 1ML IV PRN (08:30)
[2017-11-01] MEDS ORDERED: hydrALAzine 20 MG/ML, 1ML IV PRN (08:30)
[2017-11-01] MEDS ORDERED: PROMETHAZINE 25 MG/ML, 1ML IV PRN (08:30)
[2017-11-01] MEDS: INSULIN LISPRO 100 UNITS/ML, PEN SQ-INSULIN SCH ×4 (08:54→20:50)
[2017-11-01] MEDS: AMLODIPINE 5 MG TABLET PO SCH (09:28)
[2017-11-01] MEDS: LISINOPRIL 20 MG TABLET PO SCH (09:28)
[2017-11-01] MEDS: TERAZOSIN 2MG CAPSULE PO SCH (09:28)
[2017-11-01] MEDS: INSULIN GLARGINE 100 UNITS/ML, PEN SQ-INSULIN SCH (09:32)
[2017-11-01 10:34] LABS: INTERNATIONAL NORMALIZED RATIO 1.01 (0.93-1.1); PROTHROMBIN TIME 10.5 Seconds (9.6-11.5)
[2017-11-01] MEDS: ACETAMINOPHEN 325 MG TABLET PO PRN (14:33)
[2017-11-01] MEDS: CEFTAROLINE 600 MG in SODIUM CHLORIDE 0.9% 100 ML IV SCH (14:33)
[2017-11-01 14:35] VITALS: BP 122/72
[2017-11-01] MEDS: ENOXAPARIN 40 MG/0.4 ML SQ SCH (17:24)
[2017-11-01 19:00] VITALS: BP 118/69
[2017-11-02 02:12] VITALS: BP 128/67
[2017-11-02] MEDS: CEFTAROLINE 600 MG in SODIUM CHLORIDE 0.9% 100 ML IV SCH ×2 (02:26→14:52)
[2017-11-02] MEDS: ACETAMINOPHEN 325 MG TABLET PO PRN ×3 (02:40→19:48)
[2017-11-02 05:27] LABS: BASOPHILS # (AUTO) 0.07 x10^3/uL (0-0.1); BASOPHILS % (AUTO) 1 % (0-1); EOSINOPHILS # (AUTO) 0.09 x10^3/uL (0-0.4); EOSINOPHILS % (AUTO) 1 % (1-7); LYMPHOCYTES # (AUTO) 1.82 x10^3/uL (1-3.4); LYMPHOCYTES % (AUTO) 17 % (22-44); MD NO; MEAN CORPUSCULAR HEMOGLOBIN 29.7 pg (27.5-34.5); MEAN CORPUSCULAR HGB CONC 33.6 g/dL (33.2-36.2); MEAN CORPUSCULAR VOLUME 88.4 fL (81-97); MEAN PLATELET VOLUME 7.2 fL (7.4-10.4); MONOCYTES # (AUTO) 0.91 x10^3/uL (0.2-0.8); MONOCYTES % (AUTO) 9 % (2-9); NEUTROPHILS # (AUTO) 7.76 x10^3/uL (1.8-6.8); NEUTROPHILS % (AUTO) 73 % (42-75); PLATELET COUNT 356 x10^3/uL (130-400); RED CELL DISTRIBUTION WIDTH 13.5 % (9.4-14.8)
[2017-11-02 05:30] LABS: ANION GAP 6 mmol/L (5-15); CALCIUM 8.3 mg/dL (8.5-10.1); CHLORIDE 111 mmol/L (98-107); CREATININE 0.89 mg/dL (0.7-1.3)
[2017-11-02] MEDS: INSULIN LISPRO 100 UNITS/ML, PEN SQ-INSULIN SCH ×4 (06:39→21:20)
[2017-11-02 08:54] VITALS: BP 143/68
[2017-11-02] MEDS: TERAZOSIN 2MG CAPSULE PO SCH (10:40)
[2017-11-02] MEDS: AMLODIPINE 5 MG TABLET PO SCH (10:41)
[2017-11-02] MEDS: LISINOPRIL 20 MG TABLET PO SCH (10:41)
[2017-11-02] MEDS: INSULIN GLARGINE 100 UNITS/ML, PEN SQ-INSULIN SCH (10:45)
[2017-11-02 14:44] VITALS: BP 143/65
[2017-11-02] MEDS: ENOXAPARIN 40 MG/0.4 ML SQ SCH (18:25)
[2017-11-02 19:53] VITALS: BP 143/72
[2017-11-03 01:30] VITALS: BP 132/69
[2017-11-03] MEDS: CEFTAROLINE 600 MG in SODIUM CHLORIDE 0.9% 100 ML IV SCH ×2 (02:40→14:04)
[2017-11-03] MEDS: INSULIN LISPRO 100 UNITS/ML, PEN SQ-INSULIN SCH ×4 (06:24→20:37)
[2017-11-03 08:39] VITALS: BP 158/74
[2017-11-03] MEDS: AMLODIPINE 5 MG TABLET PO SCH (08:43)
[2017-11-03] MEDS: TERAZOSIN 2MG CAPSULE PO SCH ×2 (08:44→20:23)
[2017-11-03] MEDS: INSULIN GLARGINE 100 UNITS/ML, PEN SQ-INSULIN SCH (08:44)
[2017-11-03] MEDS: LISINOPRIL 20 MG TABLET PO SCH (08:44)
[2017-11-03] MEDS ORDERED: CEFAZOLIN PMX 2GM/50ML 50 ML IV SCH (15:00)
[2017-11-03 15:31] VITALS: BP 142/68
[2017-11-03] MEDS: ENOXAPARIN 40 MG/0.4 ML SQ SCH (16:38)
[2017-11-03] MEDS ORDERED: DIPHENHYDRAMINE 25 MG CAPSULE PO ONE (20:00)
[2017-11-03] MEDS: ACETAMINOPHEN 325 MG TABLET PO PRN (21:35)
[2017-11-03] MEDS: CEFAZOLIN 2,000 MG in SODIUM CHLORIDE 0.9% 50 ML IVPB SCH (23:00)
[2017-11-03 23:03] VITALS: BP 150/71
[2017-11-04 04:01] VITALS: BP 141/65
[2017-11-04] MEDS: CEFAZOLIN 2,000 MG in SODIUM CHLORIDE 0.9% 50 ML IVPB SCH ×3 (06:35→22:56)
[2017-11-04] MEDS: INSULIN LISPRO 100 UNITS/ML, PEN SQ-INSULIN SCH ×4 (06:40→20:20)
[2017-11-04 06:52] VITALS: BP 148/76
[2017-11-04] MEDS: TERAZOSIN 2MG CAPSULE PO SCH ×2 (08:53→20:20)
[2017-11-04] MEDS: AMLODIPINE 5 MG TABLET PO SCH (08:53)
[2017-11-04] MEDS: LISINOPRIL 20 MG TABLET PO SCH (08:54)
[2017-11-04] MEDS: INSULIN GLARGINE 100 UNITS/ML, PEN SQ-INSULIN SCH (08:55)
[2017-11-04 14:32] VITALS: BP 130/72
[2017-11-04] MEDS: ENOXAPARIN 40 MG/0.4 ML SQ SCH (17:06)
[2017-11-04 19:55] VITALS: BP 139/79
[2017-11-05 01:32] VITALS: BP 140/70
[2017-11-05 05:14] LABS: BASOPHILS # (AUTO) 0.04 x10^3/uL (0-0.1); BASOPHILS % (AUTO) 1 % (0-1); EOSINOPHILS # (AUTO) 0.18 x10^3/uL (0-0.4); EOSINOPHILS % (AUTO) 3 % (1-7); LYMPHOCYTES # (AUTO) 1.72 x10^3/uL (1-3.4); LYMPHOCYTES % (AUTO) 25 % (22-44); MD NO; MEAN CORPUSCULAR HEMOGLOBIN 29.3 pg (27.5-34.5); MEAN CORPUSCULAR HGB CONC 33.4 g/dL (33.2-36.2); MEAN CORPUSCULAR VOLUME 87.6 fL (81-97); MEAN PLATELET VOLUME 7.3 fL (7.4-10.4); MONOCYTES # (AUTO) 0.61 x10^3/uL (0.2-0.8); MONOCYTES % (AUTO) 9 % (2-9); NEUTROPHILS # (AUTO) 4.26 x10^3/uL (1.8-6.8); NEUTROPHILS % (AUTO) 63 % (42-75); PLATELET COUNT 390 x10^3/uL (130-400); RED BLOOD COUNT 3.92 x10^6/uL (4.38-5.82); RED CELL DISTRIBUTION WIDTH 13.9 % (9.4-14.8)
[2017-11-05 05:15] LABS: ALBUMIN 2.6 g/dL (3.4-5.0); ANION GAP 7 mmol/L (5-15); CALCIUM 8.6 mg/dL (8.5-10.1); CHLORIDE 109 mmol/L (98-107)
[2017-11-05 05:34] LABS: ALANINE AMINOTRANSFERASE 27 U/L (12-78); ALKALINE PHOSPHATASE 66 U/L (45-117); BILIRUBIN,TOTAL 0.4 mg/dL (0.2-1.0); CREATININE 0.98 mg/dL (0.7-1.3); TOTAL PROTEIN 6.9 g/dL (6.4-8.2)
[2017-11-05] MEDS: CEFAZOLIN 2,000 MG in SODIUM CHLORIDE 0.9% 50 ML IVPB SCH ×3 (06:32→23:04)
[2017-11-05] MEDS: INSULIN LISPRO 100 UNITS/ML, PEN SQ-INSULIN SCH ×4 (06:32→21:00)
[2017-11-05 07:08] VITALS: BP 144/78
[2017-11-05] MEDS: AMLODIPINE 5 MG TABLET PO SCH (09:00)
[2017-11-05] MEDS: TERAZOSIN 2MG CAPSULE PO SCH ×2 (09:00→21:09)
[2017-11-05] MEDS: LISINOPRIL 20 MG TABLET PO SCH (09:00)
[2017-11-05] MEDS: INSULIN GLARGINE 100 UNITS/ML, PEN SQ-INSULIN SCH (09:00)
[2017-11-05 14:15] VITALS: BP 130/70
[2017-11-05] MEDS ORDERED: CEFAZOLIN PMX 1GM/50ML 0 ML ONE (15:24)
[2017-11-05] MEDS: ENOXAPARIN 40 MG/0.4 ML SQ SCH (18:04)
[2017-11-05 19:51] VITALS: BP 141/68
[2017-11-06 02:21] VITALS: BP 148/77
[2017-11-06] MEDS: CEFAZOLIN 2,000 MG in SODIUM CHLORIDE 0.9% 50 ML IVPB SCH ×2 (06:27→15:11)
[2017-11-06] MEDS: INSULIN LISPRO 100 UNITS/ML, PEN SQ-INSULIN SCH ×4 (07:00→21:00)
[2017-11-06] MEDS: TERAZOSIN 2MG CAPSULE PO SCH ×2 (09:40→21:00)
[2017-11-06] MEDS: LISINOPRIL 20 MG TABLET PO SCH (09:41)
[2017-11-06] MEDS: AMLODIPINE 5 MG TABLET PO SCH (09:41)
[2017-11-06 09:50] VITALS: BP 129/68
[2017-11-06] MEDS: INSULIN GLARGINE 100 UNITS/ML, PEN SQ-INSULIN SCH (10:11)
[2017-11-06 13:36] VITALS: BP 128/53
[2017-11-06 18:54] VITALS: BP 136/70
[2017-11-06] MEDS: PIPERACILLIN/TAZO/PMX 4.5GM 100 ML IV SCH (19:40)
[2017-11-06] MEDS: ENOXAPARIN 40 MG/0.4 ML SQ SCH (19:40)
[2017-11-06] MEDS: ACETAMINOPHEN 325 MG TABLET PO PRN (22:56)
[2017-11-07 01:04] VITALS: BP 140/64
[2017-11-07] MEDS: PIPERACILLIN/TAZO/PMX 4.5GM 100 ML IV SCH ×2 (03:08→10:22)
[2017-11-07] MEDS: INSULIN LISPRO 100 UNITS/ML, PEN SQ-INSULIN SCH ×4 (07:00→21:00)
[2017-11-07 08:54] VITALS: BP 121/65
[2017-11-07] MEDS: TERAZOSIN 2MG CAPSULE PO SCH ×2 (09:00→21:00)
[2017-11-07] MEDS: AMLODIPINE 5 MG TABLET PO SCH (10:22)
[2017-11-07] MEDS: LISINOPRIL 20 MG TABLET PO SCH (10:22)
[2017-11-07] MEDS: INSULIN GLARGINE 100 UNITS/ML, PEN SQ-INSULIN SCH (10:32)
[2017-11-07] MEDS: ACETAMINOPHEN 325 MG TABLET PO PRN (10:48)
[2017-11-07 13:35] VITALS: BP 146/63
[2017-11-07] MEDS: AMOXICILLIN/CLAV 875-125MG TABLET PO SCH ×2 (15:06→23:39)
[2017-11-07 20:50] VITALS: BP 137/65
[2017-11-07] MEDS: ENOXAPARIN 40 MG/0.4 ML SQ SCH (21:10)
[2017-11-08 02:20] VITALS: BP 132/64
[2017-11-08] MEDS: INSULIN LISPRO 100 UNITS/ML, PEN SQ-INSULIN SCH ×3 (07:00→15:46)
[2017-11-08 07:43] VITALS: BP 155/72
[2017-11-08] MEDS: LISINOPRIL 20 MG TABLET PO SCH (07:50)
[2017-11-08] MEDS: INSULIN GLARGINE 100 UNITS/ML, PEN SQ-INSULIN SCH (07:50)
[2017-11-08] MEDS: AMOXICILLIN/CLAV 875-125MG TABLET PO SCH ×2 (07:50→15:46)
[2017-11-08] MEDS: TERAZOSIN 2MG CAPSULE PO SCH (07:51)
[2017-11-08] MEDS: AMLODIPINE 5 MG TABLET PO SCH (07:51)
[2017-11-08 13:36] VITALS: BP 136/63
[2017-11-08] MEDS ORDERED: AMOX1TAB12 PO (13:47)
[2017-11-08] MEDS ORDERED: ACID1TAB PO (13:47)
[2017-11-08 16:10] VITALS: BP 132/63
== END 2017-11-08 16:30 | disposition home or self-care (01) | DRG 629 ==
LOC: ED 16:14 → EDIP 16:49 → 4NOR 17:40 → DCLOUNGE 11-08 16:16
PROVIDERS: ADMIT Internal Medicine; ATTEND Internal Medicine
PROC: 0QBR0ZZ Excision of Left Toe Phalanx, Open Approach (ICD-10-PCS; 2017-11-01)
PROC: 0LSN0ZZ Reposition Right Lower Leg Tendon, Open Approach (ICD-10-PCS; 2017-11-01)
PROC: 0QBQ0ZZ Excision of Right Toe Phalanx, Open Approach (ICD-10-PCS; 2017-11-01)
PROC: 0LSP0ZZ Reposition Left Lower Leg Tendon, Open Approach (ICD-10-PCS; principal; 2017-11-01 07:00)
DX: E11.69 Type 2 diabetes mellitus with other specified complication (principal); E46 Unspecified protein-calorie malnutrition; M86.171 Other acute osteomyelitis, right ankle and foot; E11.621 Type 2 diabetes mellitus with foot ulcer; E11.42 Type 2 diabetes mellitus with diabetic polyneuropathy; E11.628 Type 2 diabetes mellitus with other skin complications; E11.65 Type 2 diabetes mellitus with hyperglycemia; F12.90 Cannabis use, unspecified, uncomplicated; F15.10 Other stimulant abuse, uncomplicated; I10 Essential (primary) hypertension; L97.519 Non-pressure chronic ulcer of other part of right foot with unspecified severity; L97.529 Non-pressure chronic ulcer of other part of left foot with unspecified severity; Z79.4 Long term (current) use of insulin; Z82.49 Family history of ischemic heart disease and other diseases of the circulatory system; Z83.1 Family history of other infectious and parasitic diseases; Z83.3 Family history of diabetes mellitus; Z89.421 Acquired absence of other right toe(s); L84 Corns and callosities; M24.574 Contracture, right foot; Z68.26 Body mass index [BMI] 26.0-26.9, adult
CPT/HCPCS: 36415; 80048; 80053; 82040; 82962; 83036; 83735; 84443; 85025; 85610; 85651; 85730; 86140; 86141; 86480; 87040; 87070; 87075; 87076; 87077; 87147; 87176; 87186; 87205; 96372; 96374; 99285; J0171; J0690; J0712; J1100; J1650; J2250; J2405; J2543; J2704; J3010; J3490; J1815; J2370

== ENCOUNTER → 2017-11-12 | Outpatient (CLI) | payer MEDICAID ==
[~2017-11-12] MED LIST changes: +ACID1TAB PO; +AMOX1TAB12 PO
== END | disposition home or self-care (01) ==
LOC: WOUND 12:56
PROVIDERS: ATTEND Internal Medicine
DX: E11.621 Type 2 diabetes mellitus with foot ulcer (principal); L97.512 Non-pressure chronic ulcer of other part of right foot with fat layer exposed; T81.32XA Disruption of internal operation (surgical) wound, not elsewhere classified, initial encounter; E11.65 Type 2 diabetes mellitus with hyperglycemia; E11.618 Type 2 diabetes mellitus with other diabetic arthropathy; E11.42 Type 2 diabetes mellitus with diabetic polyneuropathy; E11.69 Type 2 diabetes mellitus with other specified complication; M86.171 Other acute osteomyelitis, right ankle and foot; L84 Corns and callosities; I10 Essential (primary) hypertension; F15.10 Other stimulant abuse, uncomplicated; Z89.421 Acquired absence of other right toe(s); Z79.4 Long term (current) use of insulin
CPT/HCPCS: 97597; 99215

== ENCOUNTER → 2017-11-21 | Outpatient (CLI) | payer MEDICAID ==
[~2017-11-21] MED LIST changes: -AMLO5TAB2 PO; +AMLO5TAB7 PO
== END | disposition home or self-care (01) ==
LOC: WOUND 08:53
PROVIDERS: ATTEND Internal Medicine
DX: T81.89XD Other complications of procedures, not elsewhere classified, subsequent encounter (principal); E11.621 Type 2 diabetes mellitus with foot ulcer; L97.512 Non-pressure chronic ulcer of other part of right foot with fat layer exposed; E11.65 Type 2 diabetes mellitus with hyperglycemia; E11.42 Type 2 diabetes mellitus with diabetic polyneuropathy; E11.618 Type 2 diabetes mellitus with other diabetic arthropathy; E11.69 Type 2 diabetes mellitus with other specified complication; M86.171 Other acute osteomyelitis, right ankle and foot; L84 Corns and callosities; I10 Essential (primary) hypertension; F15.10 Other stimulant abuse, uncomplicated; E66.9 Obesity, unspecified; Z68.26 Body mass index [BMI] 26.0-26.9, adult; Z79.4 Long term (current) use of insulin; Z87.891 Personal history of nicotine dependence; Y83.8 Other surgical procedures as the cause of abnormal reaction of the patient, or of later complication, without mention of misadventure at the time of the procedure
CPT/HCPCS: 97597

== ENCOUNTER → 2017-11-28 | Outpatient (CLI) | payer MEDICAID | END | disposition home or self-care (01) | LOC: WOUND 09:12 | PROVIDERS: ATTEND Internal Medicine | DX: T81.89XD Other complications of procedures, not elsewhere classified, subsequent encounter (principal); E11.621 Type 2 diabetes mellitus with foot ulcer; L97.512 Non-pressure chronic ulcer of other part of right foot with fat layer exposed; E11.42 Type 2 diabetes mellitus with diabetic polyneuropathy; E11.618 Type 2 diabetes mellitus with other diabetic arthropathy; E11.69 Type 2 diabetes mellitus with other specified complication; M86.171 Other acute osteomyelitis, right ankle and foot; E11.65 Type 2 diabetes mellitus with hyperglycemia; L84 Corns and callosities; I10 Essential (primary) hypertension; F15.10 Other stimulant abuse, uncomplicated; E66.9 Obesity, unspecified; Z68.26 Body mass index [BMI] 26.0-26.9, adult; Z87.891 Personal history of nicotine dependence; Y83.8 Other surgical procedures as the cause of abnormal reaction of the patient, or of later complication, without mention of misadventure at the time of the procedure | CPT/HCPCS: 97597 ==

== ENCOUNTER → 2017-12-05 | Outpatient (CLI) | payer MEDICAID | END | disposition home or self-care (01) | LOC: WOUND 08:53 | PROVIDERS: ATTEND Internal Medicine Cardiovascular Disease | DX: T81.89XD Other complications of procedures, not elsewhere classified, subsequent encounter (principal); E11.621 Type 2 diabetes mellitus with foot ulcer; L97.512 Non-pressure chronic ulcer of other part of right foot with fat layer exposed; E11.65 Type 2 diabetes mellitus with hyperglycemia; E11.618 Type 2 diabetes mellitus with other diabetic arthropathy; E11.69 Type 2 diabetes mellitus with other specified complication; M86.171 Other acute osteomyelitis, right ankle and foot; E11.42 Type 2 diabetes mellitus with diabetic polyneuropathy; L84 Corns and callosities; E66.9 Obesity, unspecified; I10 Essential (primary) hypertension; Z68.26 Body mass index [BMI] 26.0-26.9, adult; Z79.4 Long term (current) use of insulin; Z87.891 Personal history of nicotine dependence; Y83.8 Other surgical procedures as the cause of abnormal reaction of the patient, or of later complication, without mention of misadventure at the time of the procedure | CPT/HCPCS: 97602 ==

== ENCOUNTER → 2017-12-12 | Outpatient (CLI) | payer MEDICAID | END | disposition home or self-care (01) | LOC: WOUND 08:30 | PROVIDERS: ATTEND Internal Medicine | DX: E11.621 Type 2 diabetes mellitus with foot ulcer (principal); L97.512 Non-pressure chronic ulcer of other part of right foot with fat layer exposed; S81.802D Unspecified open wound, left lower leg, subsequent encounter; S81.801D Unspecified open wound, right lower leg, subsequent encounter; E11.42 Type 2 diabetes mellitus with diabetic polyneuropathy; E11.65 Type 2 diabetes mellitus with hyperglycemia; E11.618 Type 2 diabetes mellitus with other diabetic arthropathy; E11.69 Type 2 diabetes mellitus with other specified complication; M86.171 Other acute osteomyelitis, right ankle and foot; L84 Corns and callosities; I10 Essential (primary) hypertension; F15.10 Other stimulant abuse, uncomplicated; E66.9 Obesity, unspecified; Z68.26 Body mass index [BMI] 26.0-26.9, adult; Z79.4 Long term (current) use of insulin; Z87.891 Personal history of nicotine dependence; X58.XXXD Exposure to other specified factors, subsequent encounter | CPT/HCPCS: 97597 ==

== ENCOUNTER → 2017-12-24 | Outpatient (CLI) | payer MEDICAID | END | disposition home or self-care (01) | LOC: WOUND 13:30 | PROVIDERS: ATTEND Internal Medicine | DX: T81.89XD Other complications of procedures, not elsewhere classified, subsequent encounter (principal); E11.621 Type 2 diabetes mellitus with foot ulcer; L97.512 Non-pressure chronic ulcer of other part of right foot with fat layer exposed; E11.65 Type 2 diabetes mellitus with hyperglycemia; E11.618 Type 2 diabetes mellitus with other diabetic arthropathy; E11.69 Type 2 diabetes mellitus with other specified complication; M86.171 Other acute osteomyelitis, right ankle and foot; E11.42 Type 2 diabetes mellitus with diabetic polyneuropathy; L84 Corns and callosities; E66.9 Obesity, unspecified; I10 Essential (primary) hypertension; F12.90 Cannabis use, unspecified, uncomplicated; F15.10 Other stimulant abuse, uncomplicated; Z68.26 Body mass index [BMI] 26.0-26.9, adult; Z79.4 Long term (current) use of insulin; Z87.891 Personal history of nicotine dependence; Z89.421 Acquired absence of other right toe(s); Y83.8 Other surgical procedures as the cause of abnormal reaction of the patient, or of later complication, without mention of misadventure at the time of the procedure | CPT/HCPCS: 11042; 97597 ==

== ENCOUNTER 2018-03-12 15:57 | Inpatient (IN) | payer MEDICAID ==
[~2018-03-12] VITALS: Ht 195.6 cm; Wt 99.0 kg
[~2018-03-12 15:57] MED LIST changes: +AMLO-150 PO; -AMLO5TAB7 PO
[2018-03-12] MEDS ORDERED: LIDOCAINE 1%-EPI 1:100K, 30ML ONE (16:37)
[2018-03-12] MEDS ORDERED: LIDOCAINE 1%-EPI 1:100K, 20ML SQ ONE (17:00)
[2018-03-12 17:05] LABS: HCT (SEDRATE) 36.3 % (39.2-51.8)
[2018-03-12 17:07] LABS: BASOPHILS # (AUTO) 0.02 x10^3/uL (0-0.1); BASOPHILS % (AUTO) 0 % (0-1); EOSINOPHILS % (AUTO) 2 % (1-7); LYMPHOCYTES # (AUTO) 1.41 x10^3/uL (1-3.4); LYMPHOCYTES % (AUTO) 14 % (22-44); MD NO; MEAN CORPUSCULAR HEMOGLOBIN 29.3 pg (27.5-34.5); MEAN CORPUSCULAR HGB CONC 33.8 g/dL (33.2-36.2); MEAN CORPUSCULAR VOLUME 86.6 fL (81-97); MEAN PLATELET VOLUME 7.5 fL (7.4-10.4); MONOCYTES # (AUTO) 0.96 x10^3/uL (0.2-0.8); MONOCYTES % (AUTO) 10 % (2-9); NEUTROPHILS # (AUTO) 7.27 x10^3/uL (1.8-6.8); NEUTROPHILS % (AUTO) 74 % (42-75); PLATELET COUNT 373 x10^3/uL (130-400); RED CELL DISTRIBUTION WIDTH 14.9 % (9.4-14.8)
[2018-03-12 17:09] LABS: ALANINE AMINOTRANSFERASE 32 U/L (12-78); ALBUMIN 2.8 g/dL (3.4-5.0); ANION GAP 7 mmol/L (5-15); CALCIUM 8.4 mg/dL (8.5-10.1); CHLORIDE 110 mmol/L (98-107); CREATININE 1.15 mg/dL (0.7-1.3)
[2018-03-12 17:16] LABS: ALKALINE PHOSPHATASE 95 U/L (45-117); BILIRUBIN,TOTAL 0.2 mg/dL (0.2-1.0); TOTAL PROTEIN 7.1 g/dL (6.4-8.2)
--- NOTE | 2018-03-12 17:36 | NUR ---
FRIEND, TARUN, CONTACTED ON PT'S BEHALF TO UPDATE TO POC. TARUN: [phone]
[2018-03-12] MEDS ORDERED: ONDANSETRON ODT 4 MG PO PRN (19:00)
[2018-03-12] MEDS ORDERED: AMPICILLIN/SULBACTAM 3 GM in SODIUM CHLORIDE 0.9% 100 ML IV ONE (19:00)
[2018-03-12] MEDS ORDERED: POLYETHYLENE GLYCOL 17 GM PACKET PO PRN (19:00)
[2018-03-12] MEDS ORDERED: BISACODYL 10 MG SUPP PR PRN (19:00)
[2018-03-12] MEDS ORDERED: VANCOMYCIN PER PHARMACY MC PRN ×2 (19:00)
[2018-03-12] MEDS ORDERED: PHARMACOKINETIC CONSULTATION MC ONE (19:30)
[2018-03-12] MEDS ORDERED: PHARMACOKINETIC MONITORING MC PRN (19:30)
[2018-03-12 19:34] VITALS: BP 168/86
[2018-03-12 19:36] LABS: HEMOGLOBIN A1C 6.2 % (4.2-6.3)
[2018-03-12] MEDS: PIPERACILLIN/TAZO/PMX 3.375GM 50 ML IV SCH (20:23)
[2018-03-12] MEDS: HEPARIN 5,000 UNITS/ML, 1ML SQ SCH (20:24)
[2018-03-12] MEDS: LACTOBACILLUS CHEW TABLET PO SCH (20:24)
[2018-03-12] MEDS: ACETAMINOPHEN 325 MG TABLET PO PRN (20:47)
[2018-03-12] MEDS ORDERED: AMLODIPINE 5 MG TABLET PO SCH (21:00)
[2018-03-12] MEDS ORDERED: AMLODIPINE 5 MG TABLET ONE (21:54)
[2018-03-12] MEDS: TERAZOSIN 2MG CAPSULE PO SCH (21:55)
[2018-03-12] MEDS: AMLODIPINE 5 MG TABLET PO SCH (21:55)
[2018-03-12] MEDS: SODIUM CHLORIDE FLUSH 10ML SYR IVF SCH (21:56)
[2018-03-12] MEDS: VANCOMYCIN 1,900 MG in SODIUM CHLORIDE 0.9% 250 ML IV SCH (21:56)
[2018-03-13] MEDS: PIPERACILLIN/TAZO/PMX 3.375GM 50 ML IV SCH ×4 (01:50→23:16)
[2018-03-13 02:08] VITALS: BP 133/71
[2018-03-13] MEDS: HEPARIN 5,000 UNITS/ML, 1ML SQ SCH ×3 (04:16→21:12)
[2018-03-13 05:29] LABS: BASOPHILS % (AUTO) 1 % (0-1); EOSINOPHILS # (AUTO) 0.25 x10^3/uL (0-0.4); EOSINOPHILS % (AUTO) 3 % (1-7); LYMPHOCYTES # (AUTO) 1.37 x10^3/uL (1-3.4); LYMPHOCYTES % (AUTO) 16 % (22-44); MD NO; MEAN CORPUSCULAR HEMOGLOBIN 29.7 pg (27.5-34.5); MEAN CORPUSCULAR HGB CONC 33.8 g/dL (33.2-36.2); MEAN CORPUSCULAR VOLUME 87.8 fL (81-97); MEAN PLATELET VOLUME 7.5 fL (7.4-10.4); MONOCYTES # (AUTO) 0.79 x10^3/uL (0.2-0.8); MONOCYTES % (AUTO) 9 % (2-9); NEUTROPHILS # (AUTO) 6.18 x10^3/uL (1.8-6.8); NEUTROPHILS % (AUTO) 71 % (42-75); PLATELET COUNT 348 x10^3/uL (130-400); RED BLOOD COUNT 3.87 x10^6/uL (4.38-5.82); RED CELL DISTRIBUTION WIDTH 14.8 % (9.4-14.8)
[2018-03-13 05:42] LABS: ALBUMIN 2.7 g/dL (3.4-5.0); ANION GAP 7 mmol/L (5-15); CALCIUM 8.1 mg/dL (8.5-10.1); CHLORIDE 111 mmol/L (98-107)
[2018-03-13 05:46] LABS: ALANINE AMINOTRANSFERASE 27 U/L (12-78); ALKALINE PHOSPHATASE 90 U/L (45-117); BILIRUBIN,TOTAL 0.4 mg/dL (0.2-1.0); CREATININE 0.79 mg/dL (0.7-1.3); TOTAL PROTEIN 6.7 g/dL (6.4-8.2)
[2018-03-13] MEDS: LISINOPRIL 20 MG TABLET PO SCH (07:46)
[2018-03-13] MEDS: TERAZOSIN 2MG CAPSULE PO SCH ×2 (07:47→21:13)
[2018-03-13] MEDS: SODIUM CHLORIDE FLUSH 10ML SYR IVF SCH ×2 (07:47→21:00)
[2018-03-13] MEDS: LACTOBACILLUS CHEW TABLET PO SCH ×2 (07:47→21:12)
[2018-03-13] MEDS: AMLODIPINE 5 MG TABLET PO SCH ×2 (07:47→21:12)
[2018-03-13] MEDS: SENNA/DOCUSATE TABLET PO SCH (07:47)
[2018-03-13 08:00] VITALS: BP 131/64
[2018-03-13] MEDS ORDERED: AMLODIPINE 5 MG TABLET PO SCH ×2 (09:00)
[2018-03-13] MEDS ORDERED: TERAZOSIN 2MG CAPSULE PO SCH (09:00)
[2018-03-13] MEDS ORDERED: INSULIN DETEMIR 100 UNITS/ML, PEN SQ-INSULIN SCH (09:00)
[2018-03-13] MEDS: INSULIN GLARGINE 100 UNITS/ML, PEN SQ-INSULIN SCH (09:19)
[2018-03-13 09:21] LABS: INTERNATIONAL NORMALIZED RATIO 1.05 (0.93-1.1); PROTHROMBIN TIME 11.1 Seconds (9.6-11.5)
[2018-03-13] MEDS: INSULIN LISPRO 100 UNITS/ML, PEN SQ-INSULIN SCH ×3 (11:00→21:00)
[2018-03-13] MEDS: VANCOMYCIN 1,900 MG in SODIUM CHLORIDE 0.9% 250 ML IV SCH (13:30)
[2018-03-13 13:51] VITALS: BP 124/75
[2018-03-13] MEDS ORDERED: MIDAZOLAM 1 MG/ML, 2ML ONE (14:04)
[2018-03-13] MEDS ORDERED: FENTANYL PF 100 MCG/2ML ONE ×2 (14:04→15:12)
[2018-03-13] MEDS ORDERED: PROPOFOL 50 ML ONE (14:41)
[2018-03-13] MEDS ORDERED: BUPIVACAINE/PF-EPI 0.5% 1:200K ONE (14:56)
[2018-03-13] MEDS ORDERED: BUPIVACAINE/PF 0.5% ONE (14:56)
[2018-03-13] MEDS ORDERED: ONDANSETRON 2MG/ML, 2ML ONE (14:59)
[2018-03-13] MEDS ORDERED: MIDAZOLAM 1 MG/ML, 2ML IV PRN (15:30)
[2018-03-13] MEDS ORDERED: EPHEDRINE 50 MG/ML, 1ML IVPush PRN (15:30)
[2018-03-13] MEDS ORDERED: PROMETHAZINE 12.5 MG SUPP PR PRN (15:30)
[2018-03-13] MEDS ORDERED: ACETAMINOPHEN 325 MG TABLET PO PRN (15:30)
[2018-03-13] MEDS ORDERED: PROMETHAZINE 25 MG SUPP PR PRN (15:30)
[2018-03-13] MEDS ORDERED: DIPHENHYDRAMINE 50 MG/ML, 1ML IVPush PRN (15:30)
[2018-03-13] MEDS ORDERED: OXYcodone 5 MG/5 ML ORAL.SOL UDC PO PRN (15:30)
[2018-03-13] MEDS ORDERED: MEPERIDINE/PF 25MG/0.5ML IVPush PRN (15:30)
[2018-03-13] MEDS ORDERED: ONDANSETRON 2MG/ML, 2ML IV PRN (15:30)
[2018-03-13] MEDS ORDERED: ONDANSETRON ODT 8 MG PO PRN (15:30)
[2018-03-13] MEDS ORDERED: MORPHINE SULFATE 4 MG/ML, 1ML IVPush PRN (15:30)
[2018-03-13] MEDS ORDERED: LABETALOL 5MG/ML, 20ML IV PRN (15:30)
[2018-03-13] MEDS ORDERED: FENTANYL PF 100 MCG/2ML IV PRN (15:30)
[2018-03-13] MEDS ORDERED: PROMETHAZINE 25 MG/ML, 1ML IV PRN (15:30)
[2018-03-13] MEDS ORDERED: EPHEDRINE 50 MG/ML, 1ML IM PRN (15:30)
[2018-03-13 19:09] VITALS: BP 119/61
[2018-03-13] MEDS: ACETAMINOPHEN 325 MG TABLET PO PRN (23:16)
[2018-03-14 02:02] VITALS: BP 117/56
[2018-03-14] MEDS: HEPARIN 5,000 UNITS/ML, 1ML SQ SCH ×3 (04:56→21:00)
[2018-03-14] MEDS: PIPERACILLIN/TAZO/PMX 3.375GM 50 ML IV SCH ×2 (04:56→11:20)
[2018-03-14 05:09] LABS: BASOPHILS # (AUTO) 0.04 x10^3/uL (0-0.1); BASOPHILS % (AUTO) 1 % (0-1); EOSINOPHILS # (AUTO) 0.36 x10^3/uL (0-0.4); EOSINOPHILS % (AUTO) 5 % (1-7); LYMPHOCYTES # (AUTO) 1.69 x10^3/uL (1-3.4); LYMPHOCYTES % (AUTO) 22 % (22-44); MD NO; MEAN CORPUSCULAR HEMOGLOBIN 28.9 pg (27.5-34.5); MEAN CORPUSCULAR VOLUME 87.5 fL (81-97); MONOCYTES # (AUTO) 0.85 x10^3/uL (0.2-0.8); MONOCYTES % (AUTO) 11 % (2-9); NEUTROPHILS # (AUTO) 4.83 x10^3/uL (1.8-6.8); NEUTROPHILS % (AUTO) 62 % (42-75); PLATELET COUNT 351 x10^3/uL (130-400); RED BLOOD COUNT 3.81 x10^6/uL (4.38-5.82); RED CELL DISTRIBUTION WIDTH 15.1 % (9.4-14.8)
[2018-03-14 05:20] LABS: CHLORIDE 111 mmol/L (98-107)
[2018-03-14 05:26] LABS: ANION GAP 7 mmol/L (5-15); CALCIUM 8.1 mg/dL (8.5-10.1); CREATININE 0.93 mg/dL (0.7-1.3)
[2018-03-14] MEDS: INSULIN LISPRO 100 UNITS/ML, PEN SQ-INSULIN SCH ×4 (06:33→21:00)
[2018-03-14] MEDS: VANCOMYCIN 1,900 MG in SODIUM CHLORIDE 0.9% 250 ML IV SCH (07:27)
[2018-03-14 08:00] VITALS: BP 132/69
[2018-03-14] MEDS: LACTOBACILLUS CHEW TABLET PO SCH ×2 (08:35→20:31)
[2018-03-14] MEDS: LISINOPRIL 20 MG TABLET PO SCH (08:35)
[2018-03-14] MEDS: TERAZOSIN 2MG CAPSULE PO SCH ×2 (08:35→20:31)
[2018-03-14] MEDS: AMLODIPINE 5 MG TABLET PO SCH ×2 (08:36→20:31)
[2018-03-14] MEDS: SODIUM CHLORIDE FLUSH 10ML SYR IVF SCH ×2 (08:36→20:31)
[2018-03-14] MEDS: SENNA/DOCUSATE TABLET PO SCH (08:38)
[2018-03-14] MEDS: INSULIN GLARGINE 100 UNITS/ML, PEN SQ-INSULIN SCH (08:38)
[2018-03-14 12:45] VITALS: BP 127/70
[2018-03-14 20:00] VITALS: BP 146/66
[2018-03-14] MEDS: ACETAMINOPHEN 325 MG TABLET PO PRN (20:31)
[2018-03-15 01:19] VITALS: BP 128/53
[2018-03-15] MEDS: VANCOMYCIN 1,900 MG in SODIUM CHLORIDE 0.9% 250 ML IV SCH (02:00)
[2018-03-15] MEDS: HEPARIN 5,000 UNITS/ML, 1ML SQ SCH ×3 (05:39→21:00)
[2018-03-15] MEDS: ACETAMINOPHEN 325 MG TABLET PO PRN ×2 (05:44→16:28)
[2018-03-15] MEDS: INSULIN LISPRO 100 UNITS/ML, PEN SQ-INSULIN SCH ×4 (05:55→21:00)
[2018-03-15 06:16] LABS: BASOPHILS # (AUTO) 0.07 x10^3/uL (0-0.1); BASOPHILS % (AUTO) 1 % (0-1); EOSINOPHILS # (AUTO) 0.48 x10^3/uL (0-0.4); EOSINOPHILS % (AUTO) 7 % (1-7); LYMPHOCYTES # (AUTO) 1.79 x10^3/uL (1-3.4); LYMPHOCYTES % (AUTO) 24 % (22-44); MD NO; MEAN CORPUSCULAR HEMOGLOBIN 28.4 pg (27.5-34.5); MEAN CORPUSCULAR HGB CONC 32.3 g/dL (33.2-36.2); MEAN CORPUSCULAR VOLUME 87.7 fL (81-97); MEAN PLATELET VOLUME 7.4 fL (7.4-10.4); MONOCYTES # (AUTO) 0.71 x10^3/uL (0.2-0.8); MONOCYTES % (AUTO) 10 % (2-9); NEUTROPHILS # (AUTO) 4.44 x10^3/uL (1.8-6.8); NEUTROPHILS % (AUTO) 59 % (42-75); PLATELET COUNT 404 x10^3/uL (130-400); RED BLOOD COUNT 3.91 x10^6/uL (4.38-5.82); RED CELL DISTRIBUTION WIDTH 14.6 % (9.4-14.8)
[2018-03-15 06:17] LABS: HCT (SEDRATE) 34.2 % (39.2-51.8)
[2018-03-15 06:25] LABS: ALBUMIN 2.7 g/dL (3.4-5.0); ANION GAP 8 mmol/L (5-15); CALCIUM 8.3 mg/dL (8.5-10.1); CHLORIDE 111 mmol/L (98-107)
[2018-03-15 06:35] VITALS: BP 160/71
[2018-03-15 06:35] LABS: ALANINE AMINOTRANSFERASE 28 U/L (12-78); ALKALINE PHOSPHATASE 83 U/L (45-117); BILIRUBIN,TOTAL 0.3 mg/dL (0.2-1.0); CREATININE 0.87 mg/dL (0.7-1.3); TOTAL PROTEIN 6.9 g/dL (6.4-8.2)
[2018-03-15] MEDS: SENNA/DOCUSATE TABLET PO SCH (08:14)
[2018-03-15] MEDS: LACTOBACILLUS CHEW TABLET PO SCH ×2 (08:14→22:02)
[2018-03-15] MEDS: AMLODIPINE 5 MG TABLET PO SCH ×2 (08:14→22:02)
[2018-03-15] MEDS: LISINOPRIL 20 MG TABLET PO SCH (08:15)
[2018-03-15] MEDS: TERAZOSIN 2MG CAPSULE PO SCH ×2 (08:15→22:03)
[2018-03-15] MEDS: INSULIN GLARGINE 100 UNITS/ML, PEN SQ-INSULIN SCH (08:16)
[2018-03-15] MEDS: SODIUM CHLORIDE FLUSH 10ML SYR IVF SCH ×2 (08:16→22:04)
[2018-03-15 13:06] VITALS: BP 132/57
[2018-03-15] MEDS: VANCOMYCIN 1,800 MG in SODIUM CHLORIDE 0.9% 250 ML IV SCH (13:19)
[2018-03-15 20:05] VITALS: BP 143/70
[2018-03-16 01:54] VITALS: BP 161/73
[2018-03-16] MEDS: VANCOMYCIN 1,800 MG in SODIUM CHLORIDE 0.9% 250 ML IV SCH (02:58)
[2018-03-16] MEDS: HEPARIN 5,000 UNITS/ML, 1ML SQ SCH ×3 (05:00→21:48)
[2018-03-16] MEDS: INSULIN LISPRO 100 UNITS/ML, PEN SQ-INSULIN SCH ×4 (06:17→21:54)
[2018-03-16 07:20] VITALS: BP 163/77
[2018-03-16] MEDS: SENNA/DOCUSATE TABLET PO SCH (09:00)
[2018-03-16] MEDS: AMLODIPINE 5 MG TABLET PO SCH ×2 (09:05→21:48)
[2018-03-16] MEDS: TERAZOSIN 2MG CAPSULE PO SCH ×2 (09:05→21:48)
[2018-03-16] MEDS: INSULIN GLARGINE 100 UNITS/ML, PEN SQ-INSULIN SCH (09:06)
[2018-03-16] MEDS: LISINOPRIL 20 MG TABLET PO SCH (09:06)
[2018-03-16] MEDS: LACTOBACILLUS CHEW TABLET PO SCH ×2 (09:06→21:48)
[2018-03-16] MEDS: SODIUM CHLORIDE FLUSH 10ML SYR IVF SCH ×2 (09:07→21:48)
[2018-03-16] MEDS: ERTAPENEM 1 GM in SODIUM CHLORIDE 0.9% 50 ML IV SCH (12:55)
[2018-03-16 13:25] VITALS: BP 130/62
[2018-03-16 20:25] VITALS: BP 146/72
[2018-03-17 03:06] VITALS: BP 151/60
[2018-03-17] MEDS: HEPARIN 5,000 UNITS/ML, 1ML SQ SCH ×3 (06:29→21:08)
[2018-03-17 06:57] VITALS: BP 143/64
[2018-03-17] MEDS: INSULIN LISPRO 100 UNITS/ML, PEN SQ-INSULIN SCH ×4 (07:00→21:00)
[2018-03-17] MEDS: SODIUM CHLORIDE FLUSH 10ML SYR IVF SCH ×2 (09:00→21:00)
[2018-03-17] MEDS: LACTOBACILLUS CHEW TABLET PO SCH ×2 (09:00→21:07)
[2018-03-17] MEDS: SENNA/DOCUSATE TABLET PO SCH (09:00)
[2018-03-17] MEDS: LISINOPRIL 20 MG TABLET PO SCH (09:00)
[2018-03-17] MEDS: AMLODIPINE 5 MG TABLET PO SCH ×2 (09:00→21:07)
[2018-03-17] MEDS: TERAZOSIN 2MG CAPSULE PO SCH ×2 (09:00→21:07)
[2018-03-17] MEDS: INSULIN GLARGINE 100 UNITS/ML, PEN SQ-INSULIN SCH (09:12)
[2018-03-17] MEDS: ERTAPENEM 1 GM in SODIUM CHLORIDE 0.9% 50 ML IV SCH (12:50)
[2018-03-17 13:34] VITALS: BP 117/60
[2018-03-17 21:10] VITALS: BP 143/69
[2018-03-18 00:35] VITALS: BP 152/75
[2018-03-18 05:44] LABS: BASOPHILS # (AUTO) 0.04 x10^3/uL (0-0.1); BASOPHILS % (AUTO) 1 % (0-1); EOSINOPHILS # (AUTO) 0.23 x10^3/uL (0-0.4); EOSINOPHILS % (AUTO) 3 % (1-7); LYMPHOCYTES % (AUTO) 24 % (22-44); MD NO; MEAN CORPUSCULAR HEMOGLOBIN 28.7 pg (27.5-34.5); MEAN CORPUSCULAR VOLUME 86.9 fL (81-97); MEAN PLATELET VOLUME 6.8 fL (7.4-10.4); MONOCYTES # (AUTO) 0.57 x10^3/uL (0.2-0.8); MONOCYTES % (AUTO) 8 % (2-9); NEUTROPHILS # (AUTO) 4.76 x10^3/uL (1.8-6.8); NEUTROPHILS % (AUTO) 64 % (42-75); PLATELET COUNT 406 x10^3/uL (130-400); RED BLOOD COUNT 4.23 x10^6/uL (4.38-5.82); RED CELL DISTRIBUTION WIDTH 14.7 % (9.4-14.8)
[2018-03-18 05:46] LABS: HCT (SEDRATE) 36.5 % (39.2-51.8)
[2018-03-18 05:53] LABS: ALANINE AMINOTRANSFERASE 46 U/L (12-78); ALBUMIN 2.8 g/dL (3.4-5.0); ANION GAP 6 mmol/L (5-15); CALCIUM 8.7 mg/dL (8.5-10.1); CHLORIDE 110 mmol/L (98-107)
[2018-03-18] MEDS: HEPARIN 5,000 UNITS/ML, 1ML SQ SCH ×2 (05:58→13:31)
[2018-03-18 06:00] LABS: ALKALINE PHOSPHATASE 82 U/L (45-117); BILIRUBIN,TOTAL 0.4 mg/dL (0.2-1.0); CREATININE 0.89 mg/dL (0.7-1.3); TOTAL PROTEIN 6.9 g/dL (6.4-8.2)
[2018-03-18] MEDS: INSULIN LISPRO 100 UNITS/ML, PEN SQ-INSULIN SCH ×2 (06:11→10:59)
[2018-03-18 07:46] VITALS: BP 137/71
[2018-03-18] MEDS: SODIUM CHLORIDE FLUSH 10ML SYR IVF SCH (09:53)
[2018-03-18] MEDS: INSULIN GLARGINE 100 UNITS/ML, PEN SQ-INSULIN SCH (09:53)
[2018-03-18] MEDS: LACTOBACILLUS CHEW TABLET PO SCH (09:54)
[2018-03-18] MEDS: SENNA/DOCUSATE TABLET PO SCH (09:54)
[2018-03-18] MEDS: AMLODIPINE 5 MG TABLET PO SCH (09:54)
[2018-03-18] MEDS: LISINOPRIL 20 MG TABLET PO SCH (09:54)
[2018-03-18] MEDS: TERAZOSIN 2MG CAPSULE PO SCH (09:54)
[2018-03-18] MEDS: ERTAPENEM 1 GM in SODIUM CHLORIDE 0.9% 50 ML IV SCH (12:42)
[2018-03-18] MEDS ORDERED: ERTA1VIA IV (13:30)
[2018-03-18 14:12] VITALS: BP 120/67
[2018-03-18 14:51] VITALS: BP 137/83
== END 2018-03-18 15:55 | disposition home or self-care (01) | DRG 603 ==
LOC: ED 17:14 → EDIP 18:08 → 4NOR 19:05 → DCLOUNGE 03-18 15:40
PROVIDERS: ADMIT Emergency Medicine; ATTEND Emergency Medicine
PROC: 0Y9M0ZZ Drainage of Right Foot, Open Approach (ICD-10-PCS; 2018-03-12)
PROC: 0JCQ3ZZ Extirpation of Matter from Right Foot Subcutaneous Tissue and Fascia, Percutaneous Approach (ICD-10-PCS; principal; 2018-03-14)
PROC: 0HBMXZZ Excision of Right Foot Skin, External Approach (ICD-10-PCS; 2018-03-14)
PROC: 0HBMXZZ Excision of Right Foot Skin, External Approach (ICD-10-PCS; 2018-03-14)
DX: L03.115 Cellulitis of right lower limb (principal); E44.0 Moderate protein-calorie malnutrition; L02.611 Cutaneous abscess of right foot; D64.9 Anemia, unspecified; E11.9 Type 2 diabetes mellitus without complications; Z68.25 Body mass index [BMI] 25.0-25.9, adult; B95.61 Methicillin susceptible Staphylococcus aureus infection as the cause of diseases classified elsewhere; F12.10 Cannabis abuse, uncomplicated; F15.10 Other stimulant abuse, uncomplicated; L97.519 Non-pressure chronic ulcer of other part of right foot with unspecified severity; F17.200 Nicotine dependence, unspecified, uncomplicated; M20.5X1 Other deformities of toe(s) (acquired), right foot; S90.851A Superficial foreign body, right foot, initial encounter; X58.XXXA Exposure to other specified factors, initial encounter; B95.4 Other streptococcus as the cause of diseases classified elsewhere; I11.9 Hypertensive heart disease without heart failure; Z79.4 Long term (current) use of insulin; Z83.3 Family history of diabetes mellitus; Z89.421 Acquired absence of other right toe(s); Y93.89 Activity, other specified; Y92.89 Other specified places as the place of occurrence of the external cause; Y99.8 Other external cause status
CPT/HCPCS: 36415; 76000; 80048; 80053; 80202; 82962; 83036; 85025; 85610; 85651; 86140; 87070; 87075; 87077; 87147; 87186; 87205; 93005; 96374; 99285; G0378; J0295; J1335; J1644; J2250; J2405; J2543; J2704; J3010; J3370; J3490; J1815; J7050

== ENCOUNTER 2018-06-05 13:25 | Inpatient (IN) | payer MEDICAID ==
[~2018-06-05] VITALS: Ht 198.1 cm; Wt 98.5 kg
[~2018-06-05 13:25] MED LIST changes: +ERTA1VIA IV
[2018-06-05 14:26] LABS: BASOPHILS # (AUTO) 0.06 x10^3/uL (0-0.1); BASOPHILS % (AUTO) 1 % (0-1); EOSINOPHILS # (AUTO) 0.16 x10^3/uL (0-0.4); EOSINOPHILS % (AUTO) 2 % (1-7); LYMPHOCYTES % (AUTO) 14 % (22-44); MD NO; MEAN CORPUSCULAR HEMOGLOBIN 28.6 pg (27.5-34.5); MEAN CORPUSCULAR HGB CONC 32.6 g/dL (33.2-36.2); MEAN CORPUSCULAR VOLUME 87.8 fL (81-97); MEAN PLATELET VOLUME 7.4 fL (7.4-10.4); MONOCYTES # (AUTO) 0.77 x10^3/uL (0.2-0.8); MONOCYTES % (AUTO) 8 % (2-9); NEUTROPHILS # (AUTO) 6.88 x10^3/uL (1.8-6.8); NEUTROPHILS % (AUTO) 75 % (42-75); PLATELET COUNT 425 x10^3/uL (130-400); RED BLOOD COUNT 4.37 x10^6/uL (4.38-5.82); RED CELL DISTRIBUTION WIDTH 14.1 % (9.4-14.8)
[2018-06-05 14:33] LABS: ANION GAP 5 mmol/L (5-15); CALCIUM 8.7 mg/dL (8.5-10.1); CHLORIDE 110 mmol/L (98-107)
[2018-06-05 14:35] LABS: CREATININE 0.87 mg/dL (0.7-1.3)
--- NOTE | 2018-06-05 14:55 | NUR ---
Pt presents to ED for wound to R 4th toe. Pt states has been followed by [facility] for wound and they told him to come here. On abx.
--- NOTE | 2018-06-05 16:10 | NUR ---
Pt remains in bed. NAD.
[2018-06-05 16:39] LABS: HCT (SEDRATE) 38.4 % (39.2-51.8)
[2018-06-05] MEDS ORDERED: AMPICILLIN/SULBACTAM 3 GM in SODIUM CHLORIDE 0.9% 100 ML IV ONE (17:00)
[2018-06-05] MEDS ORDERED: BACLOFEN 10 MG TABLET PO PRN (17:30)
[2018-06-05] MEDS ORDERED: DEXTROSE 50%, 50ML SYRINGE IVPush PRN (17:30)
[2018-06-05] MEDS ORDERED: ENALAPRILAT 1.25 MG/ML, 2ML IVPush PRN (17:30)
[2018-06-05] MEDS ORDERED: POLYETHYLENE GLYCOL 17 GM PACKET PO PRN (17:30)
[2018-06-05] MEDS ORDERED: GABAPENTIN 300 MG CAPSULE PO PRN (17:30)
[2018-06-05] MEDS ORDERED: BISACODYL 10 MG SUPP PR PRN (17:30)
[2018-06-05] MEDS ORDERED: ACETAMINOPHEN 325 MG TABLET PO PRN (17:30)
[2018-06-05] MEDS ORDERED: VANCOMYCIN PER PHARMACY MC PRN (17:30)
[2018-06-05] MEDS ORDERED: DOCUSATE 100 MG CAPSULE PO PRN (17:30)
[2018-06-05] MEDS: INSULIN LISPRO 100 UNITS/ML, PEN SQ-INSULIN SCH (17:30)
[2018-06-05] MEDS ORDERED: morphine SULFATE 10 MG/ML, 1ML IVPush PRN (17:30)
[2018-06-05] MEDS ORDERED: OXYcodone IR 5MG TABLET PO PRN (17:30)
[2018-06-05] MEDS ORDERED: DEXTROSE 4 GM TAB.CHEW PO PRN (17:30)
[2018-06-05] MEDS ORDERED: GLUCAGON 1 MG IM PRN (17:30)
[2018-06-05] MEDS ORDERED: hydrALAzine 20 MG/ML, 1ML IVPush PRN (17:30)
[2018-06-05 17:51] LABS: INTERNATIONAL NORMALIZED RATIO 1.01 (0.93-1.1); PROTHROMBIN TIME 10.6 Seconds (9.6-11.5)
[2018-06-05 18:03] LABS: HEMOGLOBIN A1C 6.2 % (4.2-6.3)
[2018-06-05] MEDS ORDERED: PHARMACOKINETIC MONITORING MC PRN (18:30)
[2018-06-05] MEDS: SODIUM CHLORIDE 0.9% 1,000 ML IV SCH (18:31)
[2018-06-05 19:02] VITALS: BP 167/76
[2018-06-05] MEDS: PIPERACILLIN/TAZO/PMX 3.375GM 50 ML IV SCH (19:41)
[2018-06-05] MEDS: VANCOMYCIN 2,000 MG in SODIUM CHLORIDE 0.9% 500 ML IV SCH (20:22)
[2018-06-05] MEDS: AMLODIPINE 5 MG TABLET PO SCH (20:23)
[2018-06-05] MEDS: TERAZOSIN 2MG CAPSULE PO SCH (20:25)
[2018-06-05] MEDS: LISINOPRIL 20 MG TABLET PO SCH (20:25)
[2018-06-05] MEDS: SODIUM CHLORIDE FLUSH 10ML SYR IVF SCH (20:25)
[2018-06-06] MEDS: INSULIN LISPRO 100 UNITS/ML, PEN SQ-INSULIN SCH ×5 (00:41→16:21)
[2018-06-06 01:37] VITALS: BP 138/59
[2018-06-06] MEDS: PIPERACILLIN/TAZO/PMX 3.375GM 50 ML IV SCH ×4 (01:58→19:38)
[2018-06-06 05:18] VITALS: BP 164/72
[2018-06-06] MEDS: SODIUM CHLORIDE 0.9% 1,000 ML IV SCH (05:25)
[2018-06-06 06:02] LABS: BASOPHILS # (AUTO) 0.04 x10^3/uL (0-0.1); BASOPHILS % (AUTO) 1 % (0-1); EOSINOPHILS % (AUTO) 2 % (1-7); LYMPHOCYTES # (AUTO) 1.42 x10^3/uL (1-3.4); LYMPHOCYTES % (AUTO) 18 % (22-44); MD NO; MEAN CORPUSCULAR HEMOGLOBIN 29.7 pg (27.5-34.5); MEAN CORPUSCULAR HGB CONC 33.5 g/dL (33.2-36.2); MEAN CORPUSCULAR VOLUME 88.5 fL (81-97); MEAN PLATELET VOLUME 7.6 fL (7.4-10.4); MONOCYTES # (AUTO) 0.68 x10^3/uL (0.2-0.8); MONOCYTES % (AUTO) 9 % (2-9); NEUTROPHILS # (AUTO) 5.68 x10^3/uL (1.8-6.8); NEUTROPHILS % (AUTO) 71 % (42-75); PLATELET COUNT 358 x10^3/uL (130-400); RED BLOOD COUNT 3.89 x10^6/uL (4.38-5.82)
[2018-06-06 06:11] LABS: ALBUMIN 2.7 g/dL (3.4-5.0); ANION GAP 4 mmol/L (5-15); CALCIUM 8.3 mg/dL (8.5-10.1); CHLORIDE 112 mmol/L (98-107)
[2018-06-06 06:17] LABS: ALANINE AMINOTRANSFERASE 22 U/L (12-78); ALKALINE PHOSPHATASE 72 U/L (45-117); BILIRUBIN,TOTAL 0.4 mg/dL (0.2-1.0); CHOL/HDL RATIO 2.6; CHOLESTEROL, TOTAL 100 mg/dL (140-239); CREATININE 0.87 mg/dL (0.7-1.3); HDL CHOL % 38 % (26-37); HDL CHOLESTEROL (DIRECT) 38 mg/dL (40-60); LDL CHOLESTEROL,CALCULATED 54 mg/dL (54-169); LDL/HDL RATIO 1.4 (0.5-3.0); TOTAL PROTEIN 6.7 g/dL (6.4-8.2); TRIGLYCERIDES 41 mg/dL (50-200); VLDL CHOLESTEROL 8 mg/dL (0-25)
[2018-06-06 06:49] VITALS: BP 127/61
[2018-06-06] MEDS ORDERED: POTASSIUM CHLORIDE 40 MEQ in SODIUM CHLORIDE 0.9% 500 ML IV ONE (07:00)
[2018-06-06] MEDS: VANCOMYCIN 2,000 MG in SODIUM CHLORIDE 0.9% 500 ML IV SCH ×2 (07:58→21:03)
[2018-06-06] MEDS: D5%-0.9% NACL 1,000 ML IV SCH ×2 (07:58→19:50)
[2018-06-06 08:30] LABS: AMPHETAMINE SCREEN, URINE Negative (Negative); BARBITURATE SCREEN, URINE Negative (Negative); BENZODIAZEPINE SCREEN, URINE Negative (Negative); CANNABINOID SCREEN, URINE Negative (Negative); COCAINE SCREEN, URINE Negative (Negative); METHADONE SCREEN, URINE Negative (Negative); OPIATE SCREEN, URINE Negative (Negative)
[2018-06-06] MEDS ORDERED: GADOBUTROL 10 MMOL/10 ML PFS ONE (08:48)
[2018-06-06] MEDS: LISINOPRIL 20 MG TABLET PO SCH (09:00)
[2018-06-06] MEDS: SODIUM CHLORIDE FLUSH 10ML SYR IVF SCH ×2 (09:00→21:03)
[2018-06-06] MEDS ORDERED: INSULIN GLARGINE 100 UNITS/ML, PEN SQ-INSULIN SCH (09:00)
[2018-06-06] MEDS: AMLODIPINE 5 MG TABLET PO SCH (09:00)
[2018-06-06] MEDS: TERAZOSIN 2MG CAPSULE PO SCH (09:00)
[2018-06-06 12:26] VITALS: BP 139/62
[2018-06-06 20:26] VITALS: BP 145/62
[2018-06-07 00:49] VITALS: BP 198/90
[2018-06-07] MEDS: PIPERACILLIN/TAZO/PMX 3.375GM 50 ML IV SCH ×2 (02:14→08:36)
[2018-06-07] MEDS: INSULIN LISPRO 100 UNITS/ML, PEN SQ-INSULIN SCH ×4 (07:29→21:00)
[2018-06-07] MEDS: VANCOMYCIN 2,000 MG in SODIUM CHLORIDE 0.9% 500 ML IV SCH (07:33)
[2018-06-07] MEDS: TERAZOSIN 2MG CAPSULE PO SCH (07:34)
[2018-06-07] MEDS: AMLODIPINE 5 MG TABLET PO SCH (07:34)
[2018-06-07] MEDS: SODIUM CHLORIDE FLUSH 10ML SYR IVF SCH ×2 (07:34→21:00)
[2018-06-07] MEDS: LISINOPRIL 20 MG TABLET PO SCH (07:35)
[2018-06-07 07:40] VITALS: BP 165/76
[2018-06-07 08:34] LABS: ANION GAP 5 mmol/L (5-15); CALCIUM 8.8 mg/dL (8.5-10.1); CHLORIDE 110 mmol/L (98-107)
[2018-06-07] MEDS ORDERED: BUPIVACAINE/PF 0.5% ONE (08:36)
[2018-06-07 08:46] LABS: VANCOMYCIN,TROUGH 28.9 mcg/mL (5.0-10.0)
[2018-06-07] MEDS ORDERED: HALOPERIDOL 5 MG/ML IV PRN (09:00)
[2018-06-07] MEDS ORDERED: PROMETHAZINE 25 MG/ML, 1ML IV PRN ×2 (09:00→10:00)
[2018-06-07] MEDS ORDERED: HYDROmorphone 2 MG/ML, 1ML IVPush PRN ×2 (09:00→10:00)
[2018-06-07] MEDS ORDERED: OXYcodone 5 MG/5 ML ORAL.SOL UDC PO PRN ×2 (09:00→10:00)
[2018-06-07] MEDS ORDERED: FENTANYL PF 100 MCG/2ML IV PRN ×2 (09:00→10:00)
[2018-06-07] MEDS ORDERED: hydrALAzine 20 MG/ML, 1ML IV PRN ×2 (09:00→10:00)
[2018-06-07] MEDS ORDERED: ALBUTEROL SULFATE 2.5 MG/3 ML NPPB PRN ×2 (09:00→10:00)
[2018-06-07] MEDS ORDERED: LABETALOL 5MG/ML, 20ML IV PRN ×2 (09:00→10:00)
[2018-06-07] MEDS ORDERED: FENTANYL PF 100 MCG/2ML ONE ×2 (09:03→10:25)
[2018-06-07] MEDS ORDERED: MIDAZOLAM 1 MG/ML, 2ML ONE (09:03)
[2018-06-07] MEDS ORDERED: ONDANSETRON 2MG/ML, 2ML ONE (09:35)
[2018-06-07] MEDS ORDERED: PROPOFOL 10 MG/ML, 20ML ONE (09:35)
[2018-06-07] MEDS ORDERED: MEPERIDINE/PF 25MG/0.5ML IVPush PRN (10:00)
[2018-06-07] MEDS ORDERED: DIAZEPAM 5 MG/ML, 2ML IVPush PRN (10:00)
[2018-06-07] MEDS ORDERED: ACETAMINOPHEN 325 MG TABLET PO PRN (10:00)
[2018-06-07] MEDS ORDERED: KETOROLAC 30 MG/1 ML IV PRN (10:00)
[2018-06-07] MEDS ORDERED: OXYcodone 5 MG/5 ML ORAL.SOL UDC ONE (10:25)
[2018-06-07] MEDS: OXYcodone/APAP 5/325MG TABLET PO PRN ×3 (12:17→21:39)
[2018-06-07 13:45] VITALS: BP 146/78
[2018-06-07] MEDS: D5%-0.9% NACL 1,000 ML IV SCH (14:01)
[2018-06-07] MEDS: CEFAZOLIN PMX 1GM/50ML 50 ML IV SCH ×2 (14:01→21:39)
[2018-06-07 18:36] VITALS: BP 153/70
[2018-06-08 01:45] VITALS: BP 146/68
[2018-06-08] MEDS: OXYcodone/APAP 5/325MG TABLET PO PRN ×2 (03:29→14:11)
[2018-06-08] MEDS: CEFAZOLIN PMX 1GM/50ML 50 ML IV SCH (05:14)
[2018-06-08] MEDS: D5%-0.9% NACL 1,000 ML IV SCH (05:14)
[2018-06-08] MEDS: INSULIN LISPRO 100 UNITS/ML, PEN SQ-INSULIN SCH ×3 (07:02→16:23)
[2018-06-08 08:00] VITALS: BP 152/74
[2018-06-08] MEDS: TERAZOSIN 2MG CAPSULE PO SCH (08:18)
[2018-06-08] MEDS: LISINOPRIL 20 MG TABLET PO SCH (08:18)
[2018-06-08] MEDS: AMLODIPINE 5 MG TABLET PO SCH (08:18)
[2018-06-08] MEDS: SODIUM CHLORIDE FLUSH 10ML SYR IVF SCH (08:20)
[2018-06-08] MEDS ORDERED: ACETAMINOPHEN 325 MG TABLET PO PRN (09:30)
[2018-06-08 14:00] VITALS: BP 151/85
== END 2018-06-08 17:30 | disposition home or self-care (01) | DRG 617 ==
LOC: ED 16:31 → EDIP 16:32 → ED 16:55 → 4NOR 17:46
PROVIDERS: ADMIT Internal Medicine; ATTEND Internal Medicine
PROC: 0Y6P0Z1 Detachment at Right 1st Toe, High, Open Approach (ICD-10-PCS; principal; 2018-06-08)
PROC: 0LNV0ZZ Release Right Foot Tendon, Open Approach (ICD-10-PCS; 2018-06-08)
DX: E11.69 Type 2 diabetes mellitus with other specified complication (principal); E46 Unspecified protein-calorie malnutrition; M86.8X7 Other osteomyelitis, ankle and foot; D64.9 Anemia, unspecified; E11.40 Type 2 diabetes mellitus with diabetic neuropathy, unspecified; E11.621 Type 2 diabetes mellitus with foot ulcer; Z68.25 Body mass index [BMI] 25.0-25.9, adult; F12.90 Cannabis use, unspecified, uncomplicated; I10 Essential (primary) hypertension; L03.031 Cellulitis of right toe; L97.519 Non-pressure chronic ulcer of other part of right foot with unspecified severity; S99.921A Unspecified injury of right foot, initial encounter; L97.529 Non-pressure chronic ulcer of other part of left foot with unspecified severity; M20.41 Other hammer toe(s) (acquired), right foot; N40.0 Benign prostatic hyperplasia without lower urinary tract symptoms; W20.8XXA Other cause of strike by thrown, projected or falling object, initial encounter; Y92.89 Other specified places as the place of occurrence of the external cause; Z79.4 Long term (current) use of insulin; Z87.891 Personal history of nicotine dependence; Y93.89 Activity, other specified; Y99.8 Other external cause status
CPT/HCPCS: 36415; 73630; 99285; J7042; 80048; 80053; 80061; 80202; 80307; 82040; 82962; 83036; 83735; 84443; 85025; 85610; 85651; 86140; 87040; 88305; 88311; 96374; A9585; G0378; J0295; J0690; J2250; J2405; J2543; J2704; J3010; J3370; J3480; J3490; J1815; J7030; J7040

== ENCOUNTER 2018-07-19 15:05 | Emergency (ER) | payer MEDICAID ==
[~2018-07-19] VITALS: Ht 195.6 cm; Wt 105.4 kg
[2018-07-19 15:18] VITALS: BP 171/85
[2018-07-19] MEDS ORDERED: DIPH,PERTUSS(ACELL),TET VAC/PF 0.5 ML IM-VACC ONE ×2 (15:30→15:36)
== END 2018-07-19 16:36 | disposition home or self-care (01) ==
LOC: ED 16:00
DX: S90.31XA Contusion of right foot, initial encounter (principal); M86.171 Other acute osteomyelitis, right ankle and foot; E11.9 Type 2 diabetes mellitus without complications; X58.XXXA Exposure to other specified factors, initial encounter; Y93.01 Activity, walking, marching and hiking; Y92.009 Unspecified place in unspecified non-institutional (private) residence as the place of occurrence of the external cause; Y99.8 Other external cause status
CPT/HCPCS: 99283

== ENCOUNTER 2019-03-08 02:12 | Emergency (ER) | payer MEDICAID ==
[~2019-03-08] VITALS: Ht 195.6 cm; Wt 105.0 kg
--- NOTE | 2019-03-08 03:09 | NUR ---
C/o R foot swelling since 1200 yesterday. States having chills and cold sweats since 1700. "i just couldnt handle the pain anymore." Swelling noted to entirity of R foot. Able to tolerate weight bearing activities.
[2019-03-08] MEDS ORDERED: HYDROcodone/APAP 5/325 TABLET ONE (03:17)
[2019-03-08] MEDS ORDERED: ACETAMINOPHEN 325 MG TABLET ONE (03:17)
--- NOTE | 2019-03-08 03:21 | NUR ---
PT LAYING WITH HIS FEET ELEVATED ON THE HEAD OF THE BED AND HIS HEAD ON THE FOOT ON THE BED. PT MOVED TO A SEATED POSITION AND MEDICATED PER MAY. LAB NOW AT BEDSIDE.
[2019-03-08] MEDS ORDERED: HYDROcodone/APAP 5/325 TABLET PO ONE (03:30)
[2019-03-08] MEDS ORDERED: ACETAMINOPHEN 325 MG TABLET PO ONE (03:30)
[2019-03-08 03:32] LABS: BASOPHILS # (AUTO) 0.03 x10^3/uL (0-0.1); BASOPHILS % (AUTO) 0 % (0-1); EOSINOPHILS # (AUTO) 0.02 x10^3/uL (0-0.4); EOSINOPHILS % (AUTO) 0 % (1-7); LYMPHOCYTES # (AUTO) 0.85 x10^3/uL (1-3.4); LYMPHOCYTES % (AUTO) 8 % (22-44); MD NO; MEAN CORPUSCULAR HEMOGLOBIN 29.2 pg (27.5-34.5); MEAN CORPUSCULAR VOLUME 88.5 fL (81-97); MEAN PLATELET VOLUME 7.6 fL (7.4-10.4); MONOCYTES # (AUTO) 1.44 x10^3/uL (0.2-0.8); MONOCYTES % (AUTO) 14 % (2-9); NEUTROPHILS # (AUTO) 8.23 x10^3/uL (1.8-6.8); NEUTROPHILS % (AUTO) 78 % (42-75); PLATELET COUNT 234 x10^3/uL (130-400); RED BLOOD COUNT 3.81 x10^6/uL (4.38-5.82); RED CELL DISTRIBUTION WIDTH 14.9 % (9.4-14.8)
--- NOTE | 2019-03-08 03:32 | NUR ---
DELAY IN XRAY DUE TO SUPERVISOR DRY PASTE NEEDING TO RESPOND EMERGENTLY TO THE OR.
[2019-03-08 03:40] LABS: ALBUMIN 3.4 g/dL (3.4-5.0); ANION GAP 7 mmol/L (5-15); CALCIUM 8.9 mg/dL (8.5-10.1); CHLORIDE 105 mmol/L (98-107); CREATININE 1.23 mg/dL (0.7-1.3)
--- NOTE | 2019-03-08 04:11 | NUR ---
PT REQUESTING FOOD, OR PEANUT BUTTER AND JELLY SANDWICH, OR A TURKEY SANDWICH, OR AN APPLE. PT INFORMED NPO UNTIL RESULTS ARE BACK. PT ADJUSTED IN BED PER REQUEST. PT DENIES FURTHER NEEDS AT THIS TIME.
[2019-03-08 04:36] VITALS: BP 132/80
== END 2019-03-08 05:12 | disposition home or self-care (01) ==
LOC: ED 03:08
DX: S93.124A Dislocation of metatarsophalangeal joint of right lesser toe(s), initial encounter (principal); L03.115 Cellulitis of right lower limb; I10 Essential (primary) hypertension; E11.9 Type 2 diabetes mellitus without complications; X58.XXXA Exposure to other specified factors, initial encounter; Y93.89 Activity, other specified; Y92.89 Other specified places as the place of occurrence of the external cause; Y99.8 Other external cause status
CPT/HCPCS: 80048; 82040; 82962; 85025; 99284

== ENCOUNTER → 2019-11-13 | Outpatient (CLI) | payer OTHER, MEDICAID | END | disposition home or self-care (01) | LOC: RAD 12:35 | PROVIDERS: ATTEND Obstetrics & Gynecology Reproductive Endocrinology | DX: M85.871 Other specified disorders of bone density and structure, right ankle and foot (principal); M94.8X7 Other specified disorders of cartilage, ankle and foot ==

== ENCOUNTER → 2019-12-04 | Outpatient (CLI) | payer MEDICAID, OTHER | END | disposition home or self-care (01) | LOC: CVU 13:14 | PROVIDERS: ATTEND Orthopaedic Surgery Foot and Ankle Surgery | DX: I73.9 Peripheral vascular disease, unspecified (principal); M14.679 Charcot's joint, unspecified ankle and foot | CPT/HCPCS: 93922 ==